=== PATIENT | female | born 2000 | race Caucasian/White ===

== ENCOUNTER → 2023-04-19 | Outpatient (CLI) | payer OTHER, SELFPAY ==
[2023-05-01 20:36] LABS: HPV Reflexed? NOT INDICATED
== END | disposition home or self-care (01) ==
LOC: LABSPEC 09:50
PROVIDERS: Visit Provider Nurse Practitioner Women's Health
DX: Z12.4 Encounter for screening for malignant neoplasm of cervix (principal)
CPT/HCPCS: 88175; G0145

== ENCOUNTER 2024-01-18 20:48 | Inpatient (IN) | payer MEDICAID, SELFPAY ==
[2024-01-18] VITALS (10 sets, daily range): BP systolic 92–124; BP diastolic 52–78; PULSE 118–148; RESP 20–32; TEMP 36.1–38; O2SAT 88–96; BMI 37.3
--- NOTE | 2024-01-18 21:00 | ED.VIS.DYS ---
HPI <Dr. Eitan Dimas MD - Last Filed: 01/20/24 21:52> History of Present Illness Chief Complaint: Shortness of Breath Detail of Chief Complaint: Shortness of breath with productive cough and wheezing Informant: patient and spouse/S.O. Onset/Context/Timing Onset: Days Context: gradual Timing: Continuous and Waxes and wanes Quality: Positive for Dyspnea on exertion and Wheezing; Negative for Orthopnea or PND Current Severity: Moderate Maximum Severity: Severe Worsened by: Exertion and Coughing Relieved by: Nothing Associated Symptoms cough, rhinorrhea, fever, sore throat, sweats and white sputum; Negative for post nasal drip, ear pain or chills Chest Pain: Positive for None Narrative Narrative: Patient is a 23-year-old female who presents because of shortness of breath that started several days ago and has gotten worse. She does report wheezing. She does report upper respiratory tract infectious symptoms. Significant other is ill. No known exposure to COVID, RSV or influenza. She has never had pneumonia. She denies history of VTE and has no risk factors other than hormonal therapy for control. She denies leg pain, swelling discoloration. PE Risk Factors: Negative for Cancer, OCP + Smoking + > 35, Prior DVT or PE, Recent immobilization, Recent surgery or Recent travel Prior similar symptoms: No Recent Illness/Hospitalization: No PFSH <Dr. Eitan Dimas MD - Last Filed: 01/20/24 21:52> PFSH Medical History no medical history no medical history Home Medications norgestimate 0.25 mg-ethinyl estradiol 35 mcg tablet (Sprintec (28)) 1 tab PO DAILY CONTROL 01/19/24 [History Last Taken 01/16/24] Allergy/AdvReac Type Severity Reaction Status Date / Time No Known Allergies Allergy Verified 01/18/24 20:53 Surgical History no surgical history no surgical history Social History (Updated 01/18/24 @ 21:[address] Eitan Dimas MD) household members: significant other Smoking Status: Heavy Smoker (>10/day) substance use type: does not use ROS <Dr. Eitan Dimas MD - Last Filed: 01/20/24 21:52> ROS ED Constitutional Constitutional ED: Reports chills, fever(s) and sweats; Denies weight loss Eyes Eyes: Denies blurry vision, change in vision or diplopia ENT ENT ED: Reports rhinorrhea and sore throat; Denies ear pain Cardiovascular Cardiovascular: Reports racing heartbeat; Denies chest pain, orthopnea, palpitations or paroxysmal nocturnal dyspnea Respiratory/Chest Respiratory/Chest: Reports cough, dyspnea, dyspnea on exertion, sputum and other Details: Also reports wheezing. ; Denies orthopnea or paroxysmal nocturnal dyspnea Gastrointestinal Gastrointestinal: Reports nausea and vomiting; Denies abdominal pain or diarrhea Genitourinary Genitourinary ED: Reports other Details: Decreased urine output ; Denies dysuria, hematuria or urinary frequency Musculoskeletal Musculoskeletal: Reports arthralgias and myalgias; Denies back pain Integumentary Denies rash Neurologic Neurologic: Reports headache(s) and weakness; Denies paresthesias Hematologic/Lymphatic Hematologic/Lymphatic: Denies easy bleeding or easy bruising EXAM <Dr. Eitan Dimas MD - Last Filed: 01/20/24 21:52> Physical Exam Const Vital Signs: 01/18/24 20:50 01/18/24 21:17 01/18/24 21:19 Temperature 98 F 96.9 F L Temperature Source Temporal Temporal Pulse Rate 129 H 118 H Respiratory Rate 32 H 24 H Respiratory Effort Short of Breath Labored Accessory Muscle Use Pursed Lip Respiratory Depth Shallow Respiratory Pattern Tachypnea Blood Pressure 92/74 110/57 L Blood Pressure Mean 80 74 Pulse Ox 94 93 Oxygen Delivery Method Room Air Room Air Room Air Oxygen Flow Rate (L/min) 01/18/24 21:15 01/18/24 21:40 01/18/24 21:40 Temperature Temperature Source Pulse Rate 134 H 148 H 139 H Respiratory Rate 24 H 22 H 22 H Respiratory Effort Respiratory Depth Respiratory Pattern Normal Tachypnea Blood Pressure 124/78 H Blood Pressure Mean 93 Pulse Ox 95 Oxygen Delivery Method Room Air Oxygen Flow Rate (L/min) 01/18/24 22:15 01/18/24 22:20 01/18/24 22:34 Temperature 98 F Temperature Source Temporal Pulse Rate 137 H Respiratory Rate 26 H Respiratory Effort Respiratory Depth Respiratory Pattern Blood Pressure 96/52 L Blood Pressure Mean 66 Pulse Ox 88 92 95 Oxygen Delivery Method Room Air Nasal Cannula Nasal Cannula Oxygen Flow Rate (L/min) 2 2 01/18/24 23:18 01/18/24 23:55 01/19/24 00:12 Temperature 100.4 F H 100.4 F H Temperature Source Oral Oral Pulse Rate 120 H 118 H Respiratory Rate 22 H 20 H Respiratory Effort Respiratory Depth Respiratory Pattern Blood Pressure 108/53 L 122/61 H Blood Pressure Mean 71 81 Pulse Ox 94 96 96 Oxygen Delivery Method Nasal Cannula Nasal Cannula Room Air Oxygen Flow Rate (L/min) 2 2 01/19/24 00:13 01/19/24 03:09 01/19/24 03:10 Temperature 99.2 F H 98.4 F 98.4 F Temperature Source Oral Oral Oral Pulse Rate 119 H 100 100 Respiratory Rate 20 H 20 H 20 H Respiratory Effort Respiratory Depth Respiratory Pattern Blood Pressure 131/64 H 107/59 L 107/59 L Blood Pressure Mean 86 75 75 Pulse Ox 95 94 94 Oxygen Delivery Method Room Air Nasal Cannula Nasal Cannula Oxygen Flow Rate (L/min) 2 2 01/19/24 04:00 01/19/24 05:00 01/19/24 05:00 Temperature 98.2 F 98 F Temperature Source Oral Temporal Pulse Rate 88 106 H Respiratory Rate 16 18 Respiratory Effort Respiratory Depth Respiratory Pattern Blood Pressure 114/54 L 127/85 H 127/85 H Blood Pressure Mean 74 99 99 Pulse Ox 98 99 Oxygen Delivery Method Oxygen Flow Rate (L/min) 01/19/24 06:00 01/19/24 07:11 Temperature 98.5 F Temperature Source Oral Pulse Rate 97 104 H Respiratory Rate 16 24 H Respiratory Effort Respiratory Depth Respiratory Pattern Tachypnea Blood Pressure 118/75 Blood Pressure Mean 89 Pulse Ox 90 Oxygen Delivery Method Nasal Cannula Oxygen Flow Rate (L/min) 3 Positive well nourished, well developed and obese Constitutional Narrative: Patient appears pale. She is tachypneic with use of accessory muscles. She talks in 1-3 word sentences. General Appearance ED: well developed and pallor; Negative for NAD Nutritional Appearance: obese HEENT Reports dry mucous membranes HEENT Narrative: Head is atraumatic no cephalic. Ears normal. Nares patent with discharge. Posterior pharynx without erythema or exudate. Mouth ED: Yes dry mucous membranes Mouth: dry mucous membranes Eyes PERRL and EOMs intact bilaterally General Eye ED: Negative for pale conjunctiva or scleral icterus Neck no lymphadenopathy, supple, no meningeal signs and no JVD Neck Narrative: Trachea is midline. There is no inspiratory or Tory wheezing. Resp No normal respiratory effort and No clear to auscultation bilaterally Resp Narrative: There is decreased air movement bilaterally. Breath sounds are symmetric. Auscultation: wheezes expiratory wheezes and throughout Cardio regular rhythm, S1 normal heart sound, S2 normal heart sound and no murmurs Rate: tachycardic GI non-tender, non-distended and no masses Auscultation: normoactive bowel sounds Palpation: soft Back/Spine no CVA tenderness Extremity normal to inspection Extremity Narrative: There is no clubbing or acrocyanosis. General Extremety ED: Negative for edema or tenderness General Extremity: Negative for edema Neuro oriented x3, CN's II-XII intact bilaterally and no sensory deficits noted Aurora Coma Scale: document GCS findings Spontaneous Obeys Commands Oriented 15 Sensorium / Orientation: alert Psych mental status grossly normal Skin no wounds and No skin turgor normal General Skin Exam: pallor; Negative for jaundice Lesions: no lesions Rashes: no rashes <Dr. Irwin Ramsey, DO - Last Filed: 01/19/24 08:34> Physical Exam Const Vital Signs: 01/18/24 20:50 01/18/24 21:17 01/18/24 21:19 Temperature 98 F 96.9 F L Temperature Source Temporal Temporal Pulse Rate 129 H 118 H Respiratory Rate 32 H 24 H Respiratory Effort Short of Breath Labored Accessory Muscle Use Pursed Lip Respiratory Depth Shallow Respiratory Pattern Tachypnea Blood Pressure 92/74 110/57 L Blood Pressure Mean 80 74 Pulse Ox 94 93 Oxygen Delivery Method Room Air Room Air Room Air Oxygen Flow Rate (L/min) 01/18/24 21:15 01/18/24 21:40 01/18/24 21:40 Temperature Temperature Source Pulse Rate 134 H 148 H 139 H Respiratory Rate 24 H 22 H 22 H Respiratory Effort Respiratory Depth Respiratory Pattern Normal Tachypnea Blood Pressure 124/78 H Blood Pressure Mean 93 Pulse Ox 95 Oxygen Delivery Method Room Air Oxygen Flow Rate (L/min) 01/18/24 22:15 01/18/24 22:20 01/18/24 22:34 Temperature 98 F Temperature Source Temporal Pulse Rate 137 H Respiratory Rate 26 H Respiratory Effort Respiratory Depth Respiratory Pattern Blood Pressure 96/52 L Blood Pressure Mean 66 Pulse Ox 88 92 95 Oxygen Delivery Method Room Air Nasal Cannula Nasal Cannula Oxygen Flow Rate (L/min) 2 2 01/18/24 23:18 01/18/24 23:55 01/19/24 00:12 Temperature 100.4 F H 100.4 F H Temperature Source Oral Oral Pulse Rate 120 H 118 H Respiratory Rate 22 H 20 H Respiratory Effort Respiratory Depth Respiratory Pattern Blood Pressure 108/53 L 122/61 H Blood Pressure Mean 71 81 Pulse Ox 94 96 96 Oxygen Delivery Method Nasal Cannula Nasal Cannula Room Air Oxygen Flow Rate (L/min) 2 2 01/19/24 00:13 01/19/24 03:09 01/19/24 03:10 Temperature 99.2 F H 98.4 F 98.4 F Temperature Source Oral Oral Oral Pulse Rate 119 H 100 100 Respiratory Rate 20 H 20 H 20 H Respiratory Effort Respiratory Depth Respiratory Pattern Blood Pressure 131/64 H 107/59 L 107/59 L Blood Pressure Mean 86 75 75 Pulse Ox 95 94 94 Oxygen Delivery Method Room Air Nasal Cannula Nasal Cannula Oxygen Flow Rate (L/min) 2 2 01/19/24 04:00 01/19/24 05:00 01/19/24 05:00 Temperature 98.2 F 98 F Temperature Source Oral Temporal Pulse Rate 88 106 H Respiratory Rate 16 18 Respiratory Effort Respiratory Depth Respiratory Pattern Blood Pressure 114/54 L 127/85 H 127/85 H Blood Pressure Mean 74 99 99 Pulse Ox 98 99 Oxygen Delivery Method Oxygen Flow Rate (L/min) 01/19/24 06:00 01/19/24 07:11 Temperature 98.5 F Temperature Source Oral Pulse Rate 97 104 H Respiratory Rate 16 24 H Respiratory Effort Respiratory Depth Respiratory Pattern Tachypnea Blood Pressure 118/75 Blood Pressure Mean 89 Pulse Ox 90 Oxygen Delivery Method Nasal Cannula Oxygen Flow Rate (L/min) 3 Neuro Anton Coma Scale: document GCS findings 15 MDM <Dr. Eitan Dimas MD - Last Filed: 01/20/24 21:52> [facility] Narrative Medical decision making narrative: Patient is tachycardic tachypneic in obvious respiratory distress with wheezing. Will treat with Atrovent and albuterol nebulized treatment. She will receive 125 mg of Solu-Medrol. She does not have history of asthma. This may be an upper respiratory infection with bronchospasm versus pneumonia. She is not PERC negative. History is not consistent with PE, however. She has no symptoms of orthopnea or PND to suggest heart failure and possible myocarditis. Appropriate blood work was obtained to assess for endorgan dysfunction in the event that she has pneumonia and evaluate for sepsis. History & Record Review Additional record(s) reviewed:: No prior records Lab Data Attestation: I reviewed the patient's lab results. Lab results narrative: CBC is unremarkable. Comprehensive metabolic panel is remarkable for elevated AST and ALT as well as alkaline phosphatase. This may represent atypical organisms specifically chlamydia pneumonia. Lactate is 2. This is not elevated. There is no evidence of endorgan dysfunction. Labs: Laboratory Results - last 24 hr 01/18/24 01/19/24 21:09 01:29 WBC 8.1 RBC 4.69 Hgb 14.9 Hct 44.6 MCV 95.1 MCH 31.8 MCHC 33.4 RDW Std Deviation 40.4 RDW Coeff of Surendra 11.7 Plt Count 295 MPV 10.2 Immature Gran % (Auto) 0.200 Neut % (Auto) 78.7 H Lymph % (Auto) 11.5 L Sampson % (Auto) 9.2 Eos % (Auto) 0.2 Baso % (Auto) 0.2 Absolute Neuts (auto) 6.4 Absolute Lymphs (auto) 0.93 Nucleated RBC % 0 Sodium 136 Potassium 3.8 Chloride 106 Carbon Dioxide 23.0 Anion Gap 7 BUN 5 L Creatinine 0.95 Estim Creat Clear Calc 126.15 Est GFR (MDRD) Af Amer 93 Est GFR (MDRD) Non-Af 76 BUN/Creatinine Ratio 5.3 L Glucose 108 H Lactic Acid 2.0 4.5 H* Calcium 9.0 Total Bilirubin 0.40 AST 53 H ALT 63 H Alkaline Phosphatase 126 H Total Protein 7.8 Albumin 3.6 Globulin 4.2 Albumin/Globulin Ratio 0.9 Radiography Chest X-Ray - ED: 2 View, Read by ED Physician (Was independent reviewed interpreted by me at 2140.), Normal, Heart, Lungs, Mediastinum, Bony Structures and No Acute Disease Diagnostic Testing: Clinical Impression(s) from Imaging Studies Chest X-Ray 01/18/24 21:30 IMPRESSION: Normal x-ray examination of the chest. Electronically Signed: Keaton Carranza MD at 21:43 EST , Chest CTA 01/18/24 22:42 IMPRESSION: 1. Negative CTA chest examination, without a demonstrated pulmonary embolism or arterial dissection. 2. Pneumomediastinum extending from the level the paris and extending superiorly into the base of the neck worrisome for tracheal or esophageal injury/perforation. Clinical correlation is recommended. N.B. : The above Results were Read Back by Keaton Carranza MD to Irwin Ramsey DO, and understanding confirmed on 01/18/2024 23:46:52 (ET). Electronically Signed: Keaton Carranza MD at 23:50 EST , ADDENDUM: 01/18/24 2357 IMPRESSION: 1. Negative CTA chest examination, without a demonstrated pulmonary embolism or arterial dissection. 2. Pneumomediastinum extending from the level the paris and extending superiorly into the base of the neck worrisome for tracheal or esophageal injury/perforation. Clinical correlation is recommended. N.B. : The above Results were Read Back by Keaton Carranza MD to Irwin Ramsey DO, and understanding confirmed on 01/18/2024 23:46:52 (ET). Electronically Signed: Keaton Carranza MD at 23:50 EST , Rhythm Strip Rhythm Strip: Sinus Tach Rate: 130 Ectopy: None Treatment and Re-Evaluation :: Patient was reassessed. Heart rate is 1 42-1 50. She is breathing 25-30 times a minute. She has significant wheezing heard throughout in spite of 2 aerosol treatments and Solu-Medrol. Her rapid antigen for COVID influenza and RSV is pending. She is receiving aerosol treatment 3 and 4 <Dr. Irwin Rasmey, - Last Filed: 01/19/24 08:34> [facility] Lab Data Labs: Laboratory Results - last 24 hr 01/18/24 01/19/24 21:09 01:29 WBC 8.1 RBC 4.69 Hgb 14.9 Hct 44.6 MCV 95.1 MCH 31.8 MCHC 33.4 RDW Std Deviation 40.4 RDW Coeff of Surendra 11.7 Plt Count 295 MPV 10.2 Immature Gran % (Auto) 0.200 Neut % (Auto) 78.7 H Lymph % (Auto) 11.5 L Sampson % (Auto) 9.2 Eos % (Auto) 0.2 Baso % (Auto) 0.2 Absolute Neuts (auto) 6.4 Absolute Lymphs (auto) 0.93 Nucleated RBC % 0 Sodium 136 Potassium 3.8 Chloride 106 Carbon Dioxide 23.0 Anion Gap 7 BUN 5 L Creatinine 0.95 Estim Creat Clear Calc 126.15 Est GFR (MDRD) Af Amer 93 Est GFR (MDRD) Non-Af 76 BUN/Creatinine Ratio 5.3 L Glucose 108 H Lactic Acid 2.0 4.5 H* Calcium 9.0 Total Bilirubin 0.40 AST 53 H ALT 63 H Alkaline Phosphatase 126 H Total Protein 7.8 Albumin 3.6 Globulin 4.2 Albumin/Globulin Ratio 0.9 Radiography Diagnostic Testing: Clinical Impression(s) from Imaging Studies Chest X-Ray 01/18/24 21:30 IMPRESSION: Normal x-ray examination of the chest. Electronically Signed: Keaton Carranza MD at 21:43 EST Reading Location ID and State: [id number] / [employer] , Service support , Chest CTA 01/18/24 22:42 IMPRESSION: 1. Negative CTA chest examination, without a demonstrated pulmonary embolism or arterial dissection. 2. Pneumomediastinum extending from the level the paris and extending superiorly into the base of the neck worrisome for tracheal or esophageal injury/perforation. Clinical correlation is recommended. N.B. : The above Results were Read Back by Keaton Carranza MD to Irwin Ramsey DO, and understanding confirmed on 01/18/2024 23:46:52 (ET). Electronically Signed: Keaton Carranza MD at 23:50 EST Reading Location ID and State: [id number] / [employer] , Service support , ADDENDUM: 01/18/24 2357 IMPRESSION: 1. Negative CTA chest examination, without a demonstrated pulmonary embolism or arterial dissection. 2. Pneumomediastinum extending from the level the paris and extending superiorly into the base of the neck worrisome for tracheal or esophageal injury/perforation. Clinical correlation is recommended. N.B. : The above Results were Read Back by Keaton Carranza MD to Irwin Ramsey DO, and understanding confirmed on 01/18/2024 23:46:52 (ET). Electronically Signed: Keaton Carranza MD at 23:50 EST , Treatment and Re-Evaluation :: Patient was reassessed. Heart rate is 1 42-1 50. She is breathing 25-30 times a minute. She has significant wheezing heard throughout in spite of 2 aerosol treatments and Solu-Medrol. Her rapid antigen for COVID influenza and RSV is pending. She is receiving aerosol treatment 3 and 4 Care of the patient was turned over to md. COVID-19 PCR was reviewed and was negative. Influenza PCR was reviewed and was positive for influenza A and negative for influenza B. RSV PCR was reviewed and was negative. Patient oxygen saturation dropped into the upper 80s. Patient was started on oxygen by nasal cannula. Because of the hypoxia, persistent tachycardia and tachypnea, CTA of the chest was obtained to assess for pulmonary embolism. CTA of the chest was obtained. There is no evidence of pulmonary embolism. There is pneumomediastinum starting at the level of the paris and extending superiorly into the neck. This was interpreted by the radiologist and was also independently reviewed by myself. Patient was started on Zosyn. Patient was advised of her findings. Patient was advised of the need for transfer to higher level of care. Patient requested a nearby facility. [facility] and [facility] were not accepting any patients. [facility] [place] and [facility] cannot care for the patient. Case was discussed with [facility]. Case was discussed with Dr. Gomez, thoracic surgeon. He stated that the patient does not require emergency surgery and recommended admitting to medical service. Case was discussed with Dr. Velazco, hospitalist. He accepted the patient to be transferred there. Patient will be transferred to [facility] when a bed becomes available. Patient understands and is agreeable with the plan. All questions were answered. Case was discussed with the hospitalist here after 6 hours pending transfer to [facility]. He recommended contacting [facility] for possible transfer. [facility] was contacted. They are unable to accept the patient. Case was discussed with hospitalist at [facility]. He does not feel the patient needs to be transferred at this time since the patient's vital signs are improving. Case was discussed with the hospitalist again. He will admit the patient pending transfer to [facility]. Case was also discussed with Dr. aNqvi. She recommended keeping the patient n.p.o. Patient understood and was agreeable with the plan. All questions were answered <Dr. Irwin Ramsey, DO - Last Filed: 01/19/24 08:34> Critical Care Time Critical Care Time: Yes Critical care time (excluding procedures): 30-74 minutes (42), Including time spent:, Discussing w/Patient &/or Family/Citizen Participation Specialist, Discussing w/Consultants, Arranging Admission or Transfer and Performing Direct Patient Care at Bedside Discharge Plan Dx/Rx/DC Orders Clinical Impression: Pneumomediastinum, Acute upper respiratory infection, Sinus tachycardia, Acute bronchospasm, Influenza A Disposition Disposition: [facility] Discharge Date/Time: 01/19/24 09:12
[2024-01-18] MEDS: MethylPREDNISolone 125 MG/2 ML Vial IV (21:13)
[2024-01-18] MEDS: Ipratropium/Albuterol Sulfate 3 ML AMPUL.NEB INHALATION (21:15)
[2024-01-18] MEDS: Albuterol 2.5 MG/3 ML VIAL.NEB. INHALATION ×3 (21:15→21:40)
[2024-01-18 21:19] LABS: Absolute Lymphocyte Count 0.93 X10^3/uL (0.83-4.51); Absolute Neutrophil Count 6.4 X10^3/uL (2.0-7.7); Basophil# 0.02 X10^3/uL; Basophil% 0.2 % (0-1); Eosinophil# 0.02 X10^3/uL; Eosinophils% 0.2 % (0-5); Hematocrit 44.6 % (37-47); Hemoglobin 14.9 g/dL (12.0-15.0); Lymphocyte # 0.93 X10^3/ul (0.83-4.51); Lymphocyte % 11.5 % (19-41); Mean Corp Hgb Conc 33.4 g/dL (32-36); Mean Corpuscular Hgb 31.8 pg (27.0-32.0); Mean Corpuscular Volume 95.1 fL (81-99); Mean Platelet Vol. 10.2 fl (6.2-12.0); Monocyte# 0.74 X10^3/uL; Monocyte% 9.2 % (0-10); NRBC Flagged by Analyzer 0 % (0-5); Neutrophil # 6.35 X10^3/uL (2.7-7.7); Neutrophil % 78.7 % (47-70); Platelet Count 295 K/mm3 (150-450); RBC Distribution Width CV 11.7 % (11.6-14.6); RBC Distribution Width SD 40.4 fl (35.1-43.9); Red Blood Count 4.69 M/mm3 (4.2-5.4); White Blood Count 8.1 K/mm3 (4.4-11.0)
--- NOTE | 2024-01-18 21:30 | RAD_ITS ---
STUDY: X-RAY CHEST REASON FOR EXAM: Female, 23 years old. Cough, wheezing and respiratory distress TECHNIQUE: PA and lateral views of the chest. COMPARISON: None. FINDINGS: The lungs are clear and expanded. There is no demonstrated pleural abnormality. Normal size heart. Normal mediastinum and david. Normal visualized pulmonary arteries. Normal visualized aortic arch and descending thoracic aorta. Normal visualized thoracic spine. Normal visualized ribs, clavicles, and shoulders. There is no demonstrated abnormality of the visualized soft tissue structures of the upper abdomen. RAD/Chest PA and Lateral IMPRESSION: Normal x-ray examination of the chest. Electronically Signed: Keaton Carranza MD at 21:43 EST ,
[2024-01-18 21:40] LABS: ALB/GLOB Ratio 0.9 RATIO (0.9-2.4); AST(SGOT) 53 U/L (15-37); Alanine Aminotransfer ALT/SGPT 63 U/L (13-56); Albumin, Serum 3.6 g/dL (3.2-5.0); Alkaline Phosphatase 126 U/L (45-117); Anion Gap 7 (5-15); BUN 5 mg/dL (7-18); BUN/Creat Ratio 5.3 RATIO (10-20); Chloride 106 mmol/L (98-107); Creatinine, Serum 0.95 mg/dL (0.55-1.02); EST Glomerular Filtration Rate 76 mL/min (>60); Est Glom Filt Rate - Afr Amer 93 mL/min (>60); Estimated Creatinine Clearance 126.15 ml/min; Globulin 4.2 g/dL (2.2-4.2); Glucose 108 mg/dL (74-106); Potassium 3.8 mmol/L (3.5-5.1); Protein, Total 7.8 g/dL (6.4-8.2); Sodium Level 136 mmol/L (136-145)
--- OUTSIDE RECORDS SUMMARY | 2024-01-18 21:48 | XMS RPT_ITS | CCD ---
Author Name Unknown Address [address] [place] [address] Organization [facility] Care Team Providers Care Certified Art Therapist Name Role Phone PROVIDER, UNKNOWN Unavailable Unavailable MARIYA JUSTICE Unavailable Unavailable PROVIDER, UNKNOWN Unavailable Unavailable PROVIDER, UNKNOWN Unavailable Unavailable PROVIDER, UNKNOWN Unavailable Unavailable PROVIDER, UNKNOWN Unavailable Unavailable RUDDY, ISIDORO Unavailable Unavailable PROVIDER, UNKNOWN Unavailable Unavailable PROVIDER, UNKNOWN Unavailable Unavailable RUDDY, ISIDORO Unavailable Unavailable RUDDY, ISIDORO Unavailable Unavailable PROVIDER, UNKNOWN Unavailable Unavailable RUDDY, ISIDORO Unavailable Unavailable RATAUL, MADIE Unavailable Unavailable PROVIDER, UNKNOWN Unavailable Unavailable PROVIDER, UNKNOWN Unavailable Unavailable RUDDY, ISIDORO Unavailable Unavailable PROVIDER, UNKNOWN Unavailable Unavailable Ko Ortega Unavailable Unavailable Juanita Baez Attending Unavailable REFERRED, SELF Referring Unavailable Irwin Wilkerson Primary Care Unavailable Juanita Baez Attending Unavailable Irwin Wilkerson Referring Unavailable Irwin Wilkerson Primary Care Unavailable Jimmy REARDON, Lauryn Perales Primary Care Provider [phone] Medications Current Medications Medication Drug Class(es) Dates Sig (Normalized) Sig (Original) Ethinyl Estradiol / norgestimate (2 sources) Progestin, Estrogen Start: 10-24-2022 End: 11-21-2022 take 1 tablet by mouth once daily norgestimate 0.25 mg-ethinyl estradiol 35 mcg (ESTARYLLA) 0.25-35 mg-mcg per tablet Take 1 tablet by mouth once daily for 28 days. 28 tablet 3 10/24/2022 11/21/2022 Active Completed/Discontinued Medications Medication Drug Class(es) Dates Sig (Normalized) Sig (Original) [id number] 200 actuat albuterol 0.09 mg/actuat metered dose inhaler (1 source) beta2-Adrenergic Agonist Start: 04-21-2021 take 2 puff(s) by inhalation every four hours as needed for wheezing albuterol HFA (VENTOLIN HFA) 90 mcg/actuation inhaler Inhale 2 Puffs as instructed every 4 hours as needed for Wheezing/Shortnes s of Breath. 1 Each 1 04/21/2021 Active Problems Problem Classification Problem Date Documented Date Episodic/Chronic Asthma (2 sources) Mild intermittent asthma with (acute) exacerbation; Translations: [Asthma] Onset: 12-29-2009 12-29-2009 Chronic Developmental disorders (1 source) Developmental academic disorder; Translations: [Developmental disorder of scholastic skills, unspecified] Onset: 01-04-2015 01-04-2015 Chronic Esophageal disorders (1 source) Gastroesophageal reflux disease; Translations: [Gastro-esophageal reflux disease without esophagitis] Onset: 03-24-2012 03-24-2012 Chronic Results Test Name Value Interpretation Reference Range Facil ity Encounters Encounter Date Encounter Type Care Provider Facility Start: 10-24-2022 Refshane estrada MD Work Phone: [facility] Procedures Date Procedure Procedure Detail Performing Clinician Start: 04-13-2018 Basic metabolic pane l calcium total UNKNOWN PROVIDER Start: 04-13-2018 Blood count complete auto&auto difrntl wbc UNKNOWN PROVIDER Start: 04-13-2018 Hepatic function panel UNKNOWN PROVIDER Start: 04-13-2018 URINALYSIS - MICRO (SATELLITE) UNKNOWN PROVIDER Start: 04-13-2018 URINALYSIS W/REFLEX CULT - CHEMISTRY (SAT) UNKNOWN PROVIDER Start: 04-13-2018 URINE CULTURE UNKNOWN P ROVIDER Start: 04-13-2018 Urine test visual color cmprsn meths UNKNOWN PROVIDER Start: 04-13-2018 Urnls dip stick/tabl et rgnt auto w/o microscopy UNKNOWN PROVIDER Start: 04-13-2018 Us abdominal real ti me w/image limited UNKNOWN PROVIDER Start: 07-26-2017 Demo&/eval of pt uti marcelo aersl gen/neb/inhlr/ip UNKNOWN PROVIDER Start: 07-26-2017 Pulmonary stress test/simple UNKNOWN PROVIDER Start: 07-26-2017 PFT PER PROTOCOL SER VICE REQUEST UNKNOWN PROVIDER Start: 07-20-2017 ADMIT TO CDU UNKNOWN PA OVIDER Start: 07-20-2017 Assay of magnesium UNKN OWN PROVIDER Start: 07-20-2017 Basic metabolic pane l calcium total UNKNOWN PROVIDER Start: 07-20-2017 Blood count complete automated UNKNOWN PROVIDER Start: 07-20-2017 Chest x-ray UNKNOWN PA OVIDER Start: 07-20-2017 Introduction needle/intracatheter vein UNKNOWN PROVIDER Start: 07-20-2017 MEASURE WEIGHT UNKNOWN PROVIDER Start: 07-20-2017 RECORD HEIGHT UNKNOWN P MICKIEVIDER Start: 07-20-2017 SEND TO CDU UNKNOWN PA OVIDER Start: 07-20-2017 Urine test visual color cmprsn meths UNKNOWN PROVIDER Plan of Treatment Date Care Activity Detail Author Start: 04-21-2031 Urine microalbumin profile DTA P,TDAP,TD (8 - Td or Tdap) [facility] Start: 08-02-2022 Influenza vaccination INFLUENZA (#1) [facility] Start: 12-02-2021 DEPRESSION ASSESSMENT DEPRESSION ASS ESSMENT [facility] Start: 2019 PAP TESTING PAP TESTING [facility] Start: 04-10-2018 CHLAMYDIA SCREENING (18-24) CHLAMYDIA SCREENING (18-24) [facility] Start: 04-10-2018 GC (GONORRHEA) SCREE TIEN (18-24) GC (GONORRHEA) SCREENING (18-24) [facility] Start: 2016 ANNUAL PCP TEAM BAKERY DELIVERER LOU DISEASE VISIT ANNUAL PCP TEAM CHRONIC DISEASE VISIT [facility] Start: 2016 HEPATITIS C SCREENING HEPATITIS C SC JAMESNING [facility] Start: 2016 HIV SCREENING HIV SCREENING [facility] Start: 2016 SPIROMETRY SPIROMETRY [facility] Start: 2012 PEDS TO ADULT TRANSI TION ANNUAL ASSESSMENT PEDS TO ADULT TRANSITION ANNUAL ASSESSMENT [facility] Start: 2010 PEDS TO ADULT TRANSI TION INITIAL DISCUSSION PEDS TO ADULT TRANSITION INITIAL DISCUSSION [facility] Start: 2008 MENINGOCOCCAL B: Con central supply assistant based on risk (1 of 2 - Risk Bexsero 2-dose series) MENINGOCOCCAL B: Consider based on risk (1 of 2 - Risk Bexsero 2-dose series) [facility] Start: 2004 PNEUMOCOCCAL (1 - PCV) PNEUMOCOCCAL (1 - PCV) [facility] Start: 06-16-1999 COVID-19 VACCINE (#1) COVID-19 VACCI NE (#1) [facility] Immunizations Immunization Date Immunization Notes Care Provider Fa cility 04-21-2021 tetanus toxoid, redu yana diphtheria toxoid, and acellular pertussis vaccine, adsorbed Lauryn Marquez MD Work Phone: [facility] 09-27-2016 influenza, injectabl e, quadrivalent, preservative free Lauryn Marquez MD Work Phone: [facility] 01-04-2015 meningococcal polysaccharide (groups A, C, Y and W-135) diphtheria toxoid conjugate vaccine (MCV4P) Lauryn Marquez MD Work Phone: [facility] 09-14-2014 influenza, seasonal, injectable Lauryn Marquez MD Work Phone: [facility] 10-13-2013 influenza virus vacc ine, whole virus Lauryn Marquez MD Work Phone: [facility] 10-08-2012 influenza virus vacc ine, whole virus Lauryn Marquez MD Work Phone: [facility] 10-19-2011 influenza virus vacc ine, whole virus Lauryn Marquez MD Work Phone: [facility] 07-17-2011 human papilloma viru s vaccine, quadrivalent Lauryn Marquez MD Work Phone: [facility] 03-20-2011 human papilloma viru s vaccine, quadrivalent Lauryn Marquez MD Work Phone: [facility] 01-17-2011 human papilloma viru s vaccine, quadrivalent Lauryn Marquez MD Work Phone: [facility] 09-27-2010 influenza virus vacc ine, whole virus Lauryn Marquez MD Work Phone: [facility] 12-29-2009 Meningococcal, MCV4, unspecified conjugate formulation(groups A, C, Y and W-135) Lauryn Marquez MD Work Phone: [facility] 12-29-2009 tetanus toxoid, redu yana diphtheria toxoid, and acellular pertussis vaccine, adsorbed Lauryn Marquez MD Work Phone: [facility] 02-12-2008 varicella virus vaccine Omar husam Marquez MD Work Phone: [facility] 03-03-2003 diphtheria, tetanus toxoids and acellular pertussis vaccine Lauryn Marquez MD Work Phone: [facility] Work Phone: 03-03-2003 measles, mumps and rubella virus vaccine Laurny Marquez MD Work Phone: [facility] Work Phone: 03-03-2003 poliovirus vaccine, inactivated Lauryn Marquez MD Work Phone: [facility] Work Phone: 08-13-2001 pneumococcal conjuga te vaccine, 7 valent Lauryn Marquez MD Work Phone: [facility] Work Phone: 03-13-2001 measles, mumps and rubella virus vaccine Lauryn Marquez MD Work Phone: [facility] Work Phone: 08-28-2000 diphtheria, tetanus toxoids and acellular pertussis vaccine Lauryn Marquez MD Work Phone: [facility] Work Phone: 08-28-2000 poliovirus vaccine, inactivated Lauryn Marquez MD Work Phone: [facility] Work Phone: 08-28-2000 varicella virus vaccine Omar Marquez MD Work Phone: [facility] Work Phone: 03-25-2000 haemophilus influenz ae type b vaccine, HbOC conjugate Lauryn Marquez MD Work Phone: [facility] Work Phone: 09-14-1999 diphtheria, tetanus toxoids and acellular pertussis vaccine Lauryn Marquez MD Work Phone: [facility] Work Phone: 09-14-1999 haemophilus influenz ae type b vaccine, HbOC conjugate Lauryn Marquez MD Work Phone: [facility] Work Phone: 09-14-1999 hepatitis B vaccine, pediatric or pediatric/adolescent dosage Lauryn Marquez MD Work Phone: [facility] Work Phone: 05-29-1999 diphtheria, tetanus toxoids and acellular pertussis vaccine Lauryn Marquez MD Work Phone: [facility] Work Phone: 05-29-1999 haemophilus influenz ae type b vaccine, HbOC conjugate Lauryn Marquez MD Work Phone: [facility] Work Phone: 05-29-1999 poliovirus vaccine, inactivated Lauryn Marquez MD Work Phone: [facility] Work Phone: 03-03-1999 diphtheria, tetanus toxoids and acellular pertussis vaccine Lauryn Marquez MD Work Phone: [facility] Work Phone: 03-03-1999 haemophilus influenz ae type b vaccine, HbOC conjugate Lauryn Marquez MD Work Phone: [facility] Work Phone: 03-03-1999 poliovirus vaccine, inactivated Lauryn Marquez MD Work Phone: [facility] Work Phone: 02-01-1999 hepatitis B vaccine, pediatric or pediatric/adolescent dosage Lauryn Marquez MD Work Phone: [facility] Work Phone: 1998 hepatitis B vaccine, pediatric or pediatric/adolescent dosage Lauryn Marquez MD Work Phone: [facility] Work Phone: Payers Date Payer Category Payer Unknown MMO MMO [employer] [id number] 2020-Present [phone] [address] [place] [address] PPO [id number] 2017 Medicaid 2014 Medicaid [id number] 1998 Unknown [id number] 1998 Unknown [id number] Self-pay [id number] Social History Date Type Detail Facility [facility] History of tobacco use Cigarette Smoker C [facility] Start: 12-25-2017 Cigarettes smoked cu rrent (pack per day) - Reported 0.3 [facility] Start: 12-25-2017 Tobacco use and exposure Smoke less tobacco non-user [facility] Start: 04-21-2021 Alcohol intake Not Asked [facility] Start: 1998 Sex Assigned At Not on file C [facility] Note 10-24-2022 Telephone Encounter - Delphine Campbell Ma - 10/24/2022 3:49 PM ESTTelephone Encounter - Joycelyn Amato Ma - 10/24/2022 2:45 PM ESTTelephone Encounter - Meaghan Salvador - 10/24/2022 10:03 AM EST Note Date & Type Note Facility 10-24-2022 Miscellaneous Notes Formattin g of this note might be different from the original. Next apt 01/30/22, pt can only do after 5:00 or Satur apt due to work scheduled Script pending please review/file Pt calling in asking for an update on her refill request. Please review. Thank you. Patient calls for refill(s) of the following medication(s): Requested Prescriptions Pending Prescriptions Disp Refills norgestimate 0.25 mg-ethinyl estradiol 35 mcg (ESTARYLLA) 0.25-35 mg-mcg per tablet Sig: Take 1 tablet by mouth once daily. Preferred Pharmacy: [facility] [address] [address] Pt Ph #: [phone] Next appt: Visit date not found Last appt: Visit date not found Last filled: Meaghan Salvador Pt has changed pharmacy, completely out of this medication. documented in this encounter [facility] Progress note 04-21-2021 Note Date & Type Note Facility 04-21-2021 Note HNO ID: [id number] Author: Lauryn Marquez MD Service: ? Author Type: Physician Type: Progress Notes Filed: 04/24/2021 9:53 AM Note Text: Well woman exam I reviewed her past medical, surgical, social, and family histories today and updated chart. Allergies, chronic medications, and supplements were also reviewed and her list is now up to date. Concern(s) today include: Pruritic rash on abd and legs when oil gets on her. FAMILY HISTORY Problem Relation Age of Onset - Diabetes Unknown dad's side - Cancer Paternal Grandfather ?primary but has mets - Asthma Mother AND dad Are her periods regular? yes Intermenstrual bleeding? no Any concerns about her periods? no Current method of control: OCP Concerned about STDs? no Problems with intercourse? No stable BF x 2 years Pap Hx: never had Diet: eating better Exercise: walking Lives with boyfriend Tobacco Use: yes cutting back Alcohol Use: no Her medications were reviewed today and her list is now up to date. REVIEW OF SYSTEMS: Problems with vision? No Problems with hearing? No Chest pains? Only with reflux Shortness of breath? Occ with chemicals at work Changes in bowel function? Occ GERD, chest pain after eating, sx never with exertion Changes in urination? No Changes in mood? No Any problems with sexual functioning? No Any skin changes? No Any fatigue?No PHYSICAL EXAMINATION: BP 128/64 Temp 36.8 ?C (98.3 ?F) (Temporal) Ht 174 cm (5' 8.5 ) Wt 101.2 kg (223 lb) LMP 04/14/2021 (Approximate) BMI 33.41 kg/m? General appearance: well appearing, alert, in no acute distress and well-hydrated, well nourished Skin: skin color, texture, turgor normal, no suspicious rashes or lesions Head: normal, negative findings: hair normal in quality, distribution, and texture Eyes: Anicteric sclera. Pupils are equally round and reactive to light. Extraocular movements are intact. Ears: external ears normal, canals clear, TM's normal Nose/Sinuses: negative Oropharynx: lips, mucosa, and tongue normal, teeth and gums normal, oropharynx normal Neck: Supple, no adenopathy; thyroid symmetric, normal size Lungs: lungs clear to auscultation, no wheezing or rhonchi Heart: RRR without murmur, gallop, or rubs. Extremities: Extremities normal. No deformities, edema, or skin discoloration. Good capillary refill ASSESSMENT/PLAN: 1. Routine physical examination - ICD9: V70.0, ICD10: Z00.00 (primary diagnosis) - Recommended regular aerobic exercise. - Follow up for annual exam in one year. - F/u pap, declines today - TDAP VACCINE AGE 7+ IM 2. MUNOZ (dyspnea on exertion) - ICD9: 786.09, ICD10: R06.00 - rec PFTs, pt declines but will trial prn albuterol 3. Contact dermatitis - rec better PPE, prn topical steroids 4. GERD - rec PPI x 12 weeks, avoid triggers Lauryn Marquez MD [facility] Summary Purpose Family History No Family History Records FoundNo Family History Records FoundNo Family History Records FoundNo Family History Records FoundNo Family History Records Found Advance Directives No Advanced Directives Records FoundNo Advanced Directives Records FoundNo Advanced Directives Records FoundNo Advanced Directives Records FoundNo Advanced Directives Records Found Additional Source Comments INFORMATION SOURCE (unrecogn ized section and content) DATE CREATED AUTHOR AUTHOR'S ORGANIZ ATION 05/22/2018 [facility] DATE CREATED AUTHOR AUTHOR'S ORGANIZ ATION 12/18/2018 [facility] DATE CREATED AUTHOR AUTHOR'S ORGANIZ ATION 01/20/2019 [facility] DATE CREATED AUTHOR AUTHOR'S ORGANIZ ATION 12/26/[address] [facility] Source Comments (unrecognize d section and content) In the event this informatio n is protected by the Federal Confidentiality of Alcohol and Drug Abuse Patient Records regulations: The Federal rules restrict any use of the information to criminally investigate or prosecute any alcohol or drug abuse patient.[facility] Reason for Visit (unrecogniz ed section and content) Care Teams (unrecognized sec tion and content) FOR RECORDS PERTAINING TO PATIENTS WHO ARE OR HAVE BEEN ENROLLED IN A CHEMICAL DEPENDENCY/SUBSTANCEABUSE PROGRAM, SOME INFORMATION MAY BE OMITTED. This clinical summary was aggregated from multiple sources. Caution should be exercised in using it in the provision of clinical care. This summary normalizes information from multiple sources, and as a consequence, information in this document may materially change the coding, format and clinical context of patient data. In addition, data may be omitted in some cases. CLINICAL DECISIONS SHOULD BE BASED ON THE PRIMARY CLINICAL RECORDS. [facility]. provides no warranty or guarantee of the accuracy or completeness of information in this document.
--- NOTE | 2024-01-18 22:42 | CT_ITS ---
STUDY: CTA CHEST REASON FOR EXAM: Female, 23 years old. Dyspnea RADIATION DOSAGE (If Supplied By Facility): CTDIvol = ( 14.97 ) mGy, DLP = ( 499.07 ) mGycm TECHNIQUE: The examination was performed with the intravenous administration of IV 100mL Isovue-370. Post-processing of the angiographic images was performed, with multiplanar reformation and 3D reconstruction. Individualized dose optimization techniques were used for this CT. COMPARISON: Chest x-ray earlier today FINDINGS: Normal enhancement of the main pulmonary artery and right and left pulmonary arteries. Normal enhancement of the bilateral peripheral pulmonary arteries. There is no demonstrated pulmonary embolism. Normal thoracic aorta and visualized great vessels. There is no demonstrated aortic dissection. Normal heart and pericardium. Small amount of pneumomediastinum extending from the level of the paris between the paris and the esophagus and extending superiorly in the right paratracheal space extending into the neck in the prevertebral space in the right carotid space. This may be from tracheal or esophageal injury. Normal hilar regions. Normal visualized trachea and bronchi. The lungs are well expanded. Normal pulmonary parenchyma. Normal pleura. Normal chest wall structures. Normal osseous structures. Normal visualized upper abdomen. CT/CTA Chest W/WO Contrast IMPRESSION: 1. Negative CTA chest examination, without a demonstrated pulmonary embolism or arterial dissection. 2. Pneumomediastinum extending from the level the paris and extending superiorly into the base of the neck worrisome for tracheal or esophageal injury/perforation. Clinical correlation is recommended. N.B. : The above Results were Read Back by Keaton Carranza MD to Irwin Ramsey DO, and understanding confirmed on 01/18/2024 23:46:52 (ET). Electronically Signed: Keaton Carranza MD at 23:50 EST ,
[2024-01-18] MEDS: 0.9% Normal Saline (1000mL) 1,000 ML 1000 ML IV (23:21)
[2024-01-19] VITALS (16 sets, daily range): BP systolic 105–132; BP diastolic 54–85; PULSE 86–119; RESP 16–24; TEMP 36.6–37.3; O2SAT 90–99; BMI 31.6
[2024-01-19] MEDS: Piperacil/Tazobactam 4.5 GM in 0.9% Normal Saline (100mL MB+) 100 ML IV (00:36)
[2024-01-19 01:16] LABS: Reflex Lactate? Y
[2024-01-19 02:18] LABS: Lactic Acid 4.5 mmol/L (0.4-1.9)
--- NOTE | 2024-01-19 07:00 | NURSING ---
CALLED [facility] TRANSFER LINE, TALKED TO MADDIE. NO BED THIS AM, MAYBE TONIGHT. MIGHT WANT TO ADMIT HER
[2024-01-19] MEDS: Albuterol 2.5 MG/3 ML VIAL.NEB. INHALATION ×3 (07:10→19:58)
[2024-01-19] MEDS: Benzonatate 100 MG Capsule 200 MG PO (07:18)
--- NOTE | 2024-01-19 07:23 | NURSING ---
DR MICHELLE CALLE
--- NOTE | 2024-01-19 07:41 | NURSING ---
FAXED FACESHEET HAD RAD AND CT SENT TO [facility]
--- NOTE | 2024-01-19 07:56 | NURSING ---
TALKED TO ESPINOZA AT [facility]. FAXED FACE SHEET
--- NOTE | 2024-01-19 08:34 | NURSING ---
PCU JOPPERI PNEUMOMEDIASTINUM, INFLUENZA A
--- OUTSIDE RECORDS SUMMARY | 2024-01-19 08:44 | XMS RPT_ITS | CCD ---
Author Name Unknown Address [address] [place] [address] Organization [facility] Care Team Providers Care Graphic Arts Technician Name Role Phone PROVIDER, UNKNOWN Unavailable Unavailable [...] Jimmy REARDON, Lauryn Perales Primary Care Provider [phone] Medications Current Medications Medication Drug Class(es) Dates [...] Drug Class(es) Dates Sig (Normalized) Sig (Original) [id number] 200 actuat albuterol 0.09 mg/actuat metered dose [...] Encounter Type Care Provider Facility Start: 10-24-2022 Jose Roberto estrada MD Work Phone: Family Medicine Procedures [...] PROVIDER Start: 07-20-2017 ADMIT TO CDU UNKNOWN CO [facility]ID[facility] Start: 07-20-2017 Assay of magnesium UNKN OWN PROVIDER Start: 07-20-2017 Basic metabolic pane l calcium total UNKNOWN PROVIDER Start: 07-20-2017 Blood count complete automated UNKNOWN PROVIDER Start: 07-20-2017 Chest x-ray UNKNOWN CO OVIDER Start: 07-20-2017 Introduction needle/intracatheter vein UNKNOWN PROVIDER Start: 07-20-2017 MEASURE WEIGHT UNKNOWN PROVIDER Start: 07-20-2017 RECORD HEIGHT UNKNOWN P MICKIEVIDER Start: 07-20-2017 SEND TO CDU UNKNOWN CO OVIDER Start: 07-20-2017 Urine test visual color cmprsn meths UNKNOWN PROVIDER Plan of Treatment Date Care Activity Detail Author Start: 04-21-2031 Urine microalbumin profile DTA P,TDAP,TD (8 - Td or Tdap) [facility] Start: 08-02-2022 Influenza vaccination INFLUENZA (#1) [facility] Start: 12-02-2021 DEPRESSION ASSESSMENT DEPRESSION ASS ESSMENT [facility] Start: 2019 PAP TESTING PAP TESTING [facility] Start: 04-10-2018 CHLAMYDIA SCREENING (18-24) CHLAMYDIA SCREENING (18-24) [facility] Start: 04-10-2018 GC (GONORRHEA) SCREE TIEN (18-24) GC (GONORRHEA) SCREENING (18-24) [facility] Start: 2016 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 (1 of 2 - Risk Bexsero 2-dose series) MENINGOCOCCAL B: Consider based on risk (1 of 2 - Risk Bexsero 2-dose series) [facility] Start: 2004 PNEUMOCOCCAL (1 - PCV) PNEUMOCOCCAL (1 - PCV) [facility] Start: 06-16-1999 COVID-19 VACCINE (#1) COVID-19 VACCI NE (#1) [facility] Immunizations Immunization Date Immunization Notes Care Provider Fa cility 04-21-2021 tetanus toxoid, redu yana diphtheria toxoid, and acellular pertussis vaccine, adsorbed Lauryn Marquez MD Work Phone: [facility] 09-27-2016 influenza, injectabl e, quadrivalent, preservative free Lauryn Marquez MD Work Phone: [facility] 01-04-2015 meningococcal polysaccharide (groups A, C, Y and W-135) diphtheria toxoid conjugate vaccine (MCV4P) Lauryn Marquez MD Work Phone: [facility] 09-14-2014 influenza, seasonal, injectable Lauryn Marquez MD Work Phone: [facility] 10-13-2013 influenza virus vacc ine, whole virus Lauryn Marquez MD Work Phone: [facility] 10-08-2012 influenza virus vacc ine, whole virus Lauryn Marquez MD Work Phone: [facility] 10-19-2011 influenza virus vacc ine, whole virus Lauryn Marquez MD Work Phone: [facility] 07-17-2011 human papilloma viru s vaccine, quadrivalent Lauryn Marquez MD Work Phone: [facility] 03-20-2011 human papilloma viru s vaccine, quadrivalent Lauryn Marquez MD Work Phone: [facility] 01-17-2011 human papilloma viru s vaccine, quadrivalent Lauryn Marquez MD Work Phone: [facility] 09-27-2010 influenza virus vacc ine, whole virus Lauryn Marquez MD Work Phone: [facility] 12-29-2009 Meningococcal, MCV4, unspecified conjugate formulation(groups A, C, Y and W-135) Lauryn Marquez MD Work Phone: [facility] 12-29-2009 tetanus toxoid, redu yana diphtheria toxoid, and acellular pertussis vaccine, adsorbed Lauryn Marquez MD Work Phone: [facility] 02-12-2008 varicella virus vaccine Omar husam Marquez MD Work Phone: [facility] 03-03-2003 diphtheria, tetanus toxoids and acellular pertussis vaccine Lauryn Marquez MD Work Phone: [facility] Work Phone: 03-03-2003 measles, mumps and rubella virus vaccine Lauryn Marquez MD Work Phone: [facility] Work Phone: 03-03-2003 poliovirus vaccine, inactivated Lauryn Marquez MD Work Phone: [facility] Work Phone: 08-13-2001 pneumococcal conjuga te vaccine, 7 valent Lauryn Marquez MD Work Phone: [facility] Work Phone: 03-13-2001 measles, mumps and rubella virus vaccine Lauryn Marquez MD Work Phone: [facility] Work Phone: 08-28-2000 diphtheria, tetanus toxoids and acellular pertussis vaccine Lauryn Marquez MD Work Phone: [facility] Work Phone: 08-28-2000 poliovirus vaccine, inactivated Lauryn Marquez MD Work Phone: [facility] Work Phone: 08-28-2000 varicella virus vaccine Omar Marquez MD Work Phone: [facility] Work Phone: 03-25-2000 haemophilus influenz ae type b vaccine, HbOC conjugate Lauryn Marquez MD Work Phone: [facility] Work Phone: 09-14-1999 diphtheria, tetanus toxoids and acellular pertussis vaccine Lauryn Marquez MD Work Phone: [facility] Work Phone: 09-14-1999 haemophilus influenz ae type b vaccine, HbOC conjugate Lauryn Marquez MD Work Phone: [facility] Work Phone: 09-14-1999 hepatitis B vaccine, pediatric or pediatric/adolescent dosage Lauryn Marquez MD Work Phone: [facility] Work Phone: 05-29-1999 diphtheria, tetanus toxoids and acellular pertussis vaccine Lauryn Marquez MD Work Phone: [facility] Work Phone: 05-29-1999 haemophilus influenz ae type b vaccine, HbOC conjugate Lauryn Marquez MD Work Phone: [facility] Work Phone: 05-29-1999 poliovirus vaccine, inactivated Lauryn Marquez MD Work Phone: [facility] Work Phone: 03-03-1999 diphtheria, tetanus toxoids and acellular pertussis vaccine Lauryn Marquez MD Work Phone: [facility] Work Phone: 03-03-1999 haemophilus influenz ae type b vaccine, HbOC conjugate Lauryn Marquez MD Work Phone: [facility] Work Phone: 03-03-1999 poliovirus vaccine, inactivated Lauryn Marquez MD Work Phone: [facility] Work Phone: 02-01-1999 hepatitis B vaccine, pediatric or pediatric/adolescent dosage Lauryn Marquez MD Work Phone: [facility] Work Phone: 1998 hepatitis B vaccine, pediatric or pediatric/adolescent dosage Lauryn Marquez MD Work Phone: [facility] Work Phone: Payers Date Payer Category Payer Unknown MMO MMO [employer] [id number] 2020-Present [phone] [address] [place] [address] PPO [id number] 2017 Medicaid 2014 Medicaid [id number] 1998 Unknown [id number] 1998 Unknown [id number] Self-pay [id number] Social History Date Type Detail Facility Start: 12-25-2017 [facility] History of tobacco use Cigarette Smoker C [facility] Start: 12-25-2017 Cigarettes smoked cu rrent (pack per day) - Reported 0.3 [facility] Start: 12-25-2017 Tobacco use and exposure Smoke less tobacco non-user [facility] Start: 04-21-2021 Alcohol intake Not Asked [facility] Start: 1998 Sex Assigned At Not on file C [facility] Note 10-24-2022 Telephone Encounter - Delphine Campbell Ma - 10/24/2022 3:49 PM ESTTelephone Encounter - Joycelyn Amato Ma - 10/24/2022 2:45 PM ESTTelephone Encounter - Meaghan Salvador - 10/24/2022 10:03 AM EST Note Date & Type Note Facility 10-24-2022 Miscellaneous Notes Formattin g of this note might be different from the original. Next apt 01/30/22, pt can only do after 5:00 or Saturday apt due to work scheduled Script pending please review/file Pt calling in asking for an update on her refill request. Please review. Thank you. Patient calls for refill(s) of the following medication(s): Requested Prescriptions Pending Prescriptions Disp Refills norgestimate 0.25 mg-ethinyl estradiol 35 mcg (ESTARYLLA) 0.25-35 mg-mcg per tablet Sig: Take 1 tablet by mouth once daily. Preferred Pharmacy: [address] [address] Pt Ph #: [phone] Next appt: Visit date not found Last appt: Visit date not found Last filled: Meaghan Salvador Pt has changed pharmacy, completely out of this medication. documented in this encounter [facility] Progress note 04-21-2021 Note Date & Type Note Facility 04-21-2021 Note HNO ID: [id number] Author: Lauryn Marquez MD Service: ? Author [...] 12 weeks, avoid triggers Lauryn Marquez MD [facility] Summary Purpose Family History No Family History [...] DATE CREATED AUTHOR AUTHOR'S ORGANIZ ATION 05/22/2018 [facility] DATE CREATED AUTHOR AUTHOR'S ORGANIZ ATION 12/18/2018 [facility] DATE CREATED AUTHOR AUTHOR'S ORGANIZ ATION 01/20/2019 [facility] DATE CREATED AUTHOR AUTHOR'S ORGANIZ ATION 12/26/2021 [facility] Source Comments (unrecognize d section and content) In the event this informatio n is protected by the Federal Confidentiality of Alcohol and Drug Abuse Patient Records regulations: The Federal rules restrict any use of the information to criminally investigate or prosecute any alcohol or drug abuse patient.[facility] Reason for Visit (unrecogniz ed section and [...] BE BASED ON THE PRIMARY CLINICAL RECORDS. [facility] [employer] [facility]. provides no warranty or guarantee of the accuracy or completeness of information in this document.
--- NOTE | 2024-01-19 09:06 | PCM.HP.STD ---
[facility] - General General Date of Admission: 01/19/24 Date of Service: 01/19/24 Chief Complaint: shortness of breath. HPI Narrative TUSHAR PEÑA, is a 23 F who presents with shortness of breath. Patient has not been feeling well for the past week. Has been shortness of breath and having a cough and more recently and has been having nausea and vomiting. Symptoms became more acute last night and she presented to the emergency room for evaluation. Since the patient was on contraceptives and was a smoker, patient underwent a CT angiogram of her chest. CT angiogram was negative for pulmonary embolism but did show pneumomediastinum extending to the level of the [place] and extending superiorly or into the base of the neck, worrisome for tracheal or esophageal injury or perforation. The ED physician reached out to [facility] and patient was accepted but did not have any ready beds. Did also reach out to [facility] and they were not accepting patients. Patient was positive for influenza. Patient denies receiving a vaccine for influenza. [facility] Medical History no medical history no medical history Home Medications norgestimate 0.25 mg-ethinyl estradiol 35 mcg tablet (Sprintec (28)) 1 tab PO DAILY CONTROL 01/19/24 [History Last Taken 01/16/24] Allergy/AdvReac Type Severity Reaction Status Date / Time No Known Allergies Allergy Verified 01/18/24 20:53 Surgical History no surgical history Social History (Updated 01/18/24 @ 21:[address] Eitan Dimas MD) household members: significant other Smoking Status: Heavy Smoker (>10/day) substance use type: does not use Vital Signs Vital Signs Vital Signs: 01/18/24 20:50 01/18/24 21:17 01/18/24 21:19 Temperature 36.6 C 36.1 C L Temperature Source Temporal Temporal Pulse Rate 129 H 118 H Respiratory Rate 32 H 24 H Respiratory Effort Short of Breath Labored Accessory Muscle Use Pursed Lip Respiratory Depth Shallow Respiratory Pattern Tachypnea Blood Pressure 92/74 110/57 L Blood Pressure Mean 80 74 Pulse Ox 94 93 Oxygen Delivery Method Room Air Room Air Room Air Oxygen Flow Rate (L/min) 01/18/24 21:15 01/18/24 21:40 01/18/24 21:40 Temperature Temperature Source Pulse Rate 134 H 148 H 139 H Respiratory Rate 24 H 22 H 22 H Respiratory Effort Respiratory Depth Respiratory Pattern Normal Tachypnea Blood Pressure 124/78 H Blood Pressure Mean 93 Pulse Ox 95 Oxygen Delivery Method Room Air Oxygen Flow Rate (L/min) 01/18/24 22:15 01/18/24 22:20 01/18/24 22:34 Temperature 36.6 C Temperature Source Temporal Pulse Rate 137 H Respiratory Rate 26 H Respiratory Effort Respiratory Depth Respiratory Pattern Blood Pressure 96/52 L Blood Pressure Mean 66 Pulse Ox 88 92 95 Oxygen Delivery Method Room Air Nasal Cannula Nasal Cannula Oxygen Flow Rate (L/min) 2 2 01/18/24 23:18 01/18/24 23:55 01/19/24 00:12 Temperature 38.0 C H 38.0 C H Temperature Source Oral Oral Pulse Rate 120 H 118 H Respiratory Rate 22 H 20 H Respiratory Effort Respiratory Depth Respiratory Pattern Blood Pressure 108/53 L 122/61 H Blood Pressure Mean 71 81 Pulse Ox 94 96 96 Oxygen Delivery Method Nasal Cannula Nasal Cannula Room Air Oxygen Flow Rate (L/min) 2 2 01/19/24 00:13 01/19/24 03:09 01/19/24 03:10 Temperature 37.3 C H 36.9 C 36.9 C Temperature Source Oral Oral Oral Pulse Rate 119 H 100 100 Respiratory Rate 20 H 20 H 20 H Respiratory Effort Respiratory Depth Respiratory Pattern Blood Pressure 131/64 H 107/59 L 107/59 L Blood Pressure Mean 86 75 75 Pulse Ox 95 94 94 Oxygen Delivery Method Room Air Nasal Cannula Nasal Cannula Oxygen Flow Rate (L/min) 2 2 01/19/24 04:00 01/19/24 05:00 01/19/24 05:00 Temperature 36.8 C 36.6 C Temperature Source Oral Temporal Pulse Rate 88 106 H Respiratory Rate 16 18 Respiratory Effort Respiratory Depth Respiratory Pattern Blood Pressure 114/54 L 127/85 H 127/85 H Blood Pressure Mean 74 99 99 Pulse Ox 98 99 Oxygen Delivery Method Oxygen Flow Rate (L/min) 01/19/24 06:00 01/19/24 07:11 01/19/24 08:44 Temperature 36.9 C 36.6 C Temperature Source Oral Pulse Rate 97 104 H 91 Respiratory Rate 16 24 H 18 Respiratory Effort Respiratory Depth Respiratory Pattern Tachypnea Blood Pressure 118/75 105/59 L Blood Pressure Mean 89 74 Pulse Ox 90 94 Oxygen Delivery Method Nasal Cannula Oxygen Flow Rate (L/min) 3 Weight Weight: 117.934 kg Body Mass Index (BMI) 37.3 Physical Exam Const alert and no apparent distress Constitutional Narrative: Comfortable. Sitting upright in bed. No respiratory stress. No conversational dyspnea. HEENT normocephalic and head/scalp atraumatic Resp normal respiratory effort, no retractions, no use of accessory muscles and clear to auscultation bilaterally Cardio regular rate, regular rhythm, S1 normal heart sound and S2 normal heart sound GI normal to inspection, nondistended, normoactive bowel sounds, soft to palpation, non-tender and non-distended Extremity normal to inspection and full ROM Neuro Sensorium / Orientation: awake and alert Results Lab / Micro Data 01/18/24 21:09 01/18/24 21:09 Labs: Laboratory Results - last 24 hr 01/18/24 21:09: WBC 8.1, RBC 4.69, Hgb 14.9, Hct 44.6, MCV 95.1, MCH 31.8, MCHC 33.4, RDW Std Deviation 40.4, RDW Coeff of Surendra 11.7, Plt Count 295, MPV 10.2, Immature Gran % (Auto) 0.200, Neut % (Auto) 78.7 H, Lymph % (Auto) 11.5 L, [place] % (Auto) 9.2, Eos % (Auto) 0.2, Baso % (Auto) 0.2, Absolute Neuts (auto) 6.4, Absolute Lymphs (auto) 0.93, Nucleated RBC % 0, Sodium 136, Potassium 3.8, Chloride 106, Carbon Dioxide 23.0, Anion Gap 7, BUN 5 L, Creatinine 0.95, Estim Creat Clear Calc 126.15, Est GFR (MDRD) Af Amer 93, Est GFR (MDRD) Non-Af 76, BUN/Creatinine Ratio 5.3 L, Glucose 108 H, Lactic Acid 2.0, Calcium 9.0, Total Bilirubin 0.40, AST 53 H, ALT 63 H, Alkaline Phosphatase 126 H, Total Protein 7.8, Albumin 3.6, Globulin 4.2, Albumin/Globulin Ratio 0.9 01/19/24 01:29: Lactic Acid 4.5 H* Micro: Microbiology 01/18/24 21:27 Mucosa - Nose SARS-CoV-2, Influenza & RSV (PCR) - Final Influenzae A Rhythm Strip Rhythm Strip: Sinus Tach Rate: 130 Ectopy: None Imaging Radiology Impression Chest X-Ray 01/18/24 21:30 IMPRESSION: Normal x-ray examination of the chest. Electronically Signed: Keaton Carranza MD at 21:43 EST Reading Location ID and State: [id number] / [employer] Tel , Service support , Chest CTA 01/18/24 22:42 IMPRESSION: 1. Negative CTA chest examination, without a demonstrated pulmonary embolism or arterial dissection. 2. Pneumomediastinum extending from the level the [place] and extending superiorly into the base of the neck worrisome for tracheal or esophageal injury/perforation. Clinical correlation is recommended. N.B. : The above Results were Read Back by Keaton Carranza MD to Irwin Ramsey DO, and understanding confirmed on 01/18/2024 23:46:52 (ET). Electronically Signed: Keaton Carranza MD at 23:50 EST Reading Location ID and State: [id number] / [employer] , Service support , ADDENDUM: 01/18/24 2357 IMPRESSION: 1. Negative CTA chest examination, without a demonstrated pulmonary embolism or arterial dissection. 2. Pneumomediastinum extending from the level the [place] and extending superiorly into the base of the neck worrisome for tracheal or esophageal injury/perforation. Clinical correlation is recommended. N.B. : The above Results were Read Back by Keaton Carranza MD to Irwin Ramsey DO, and understanding confirmed on 01/18/2024 23:46:52 (ET). Electronically Signed: Keaton Carranza MD at 23:50 EST Reading Location ID and State: [id number] / [employer] Tel , Service support , Assessment & Plan Assessment/Plan (1) Pneumomediastinum: PLAN: Plan Pneumomediastinum Unable to determine if esophageal or tracheal. Patient, fortunately, is stable at this point in time Patient will need to be transferred to tertiary facility for further evaluation. I do not suspect the patient will require surgery, least at this point in time, however we do not have the appropriate specialist to evaluate her at this point. Awaiting on bed at [facility]. ED was informed that it could be this evening but that is not definitive. Will consult general surgery as well as pulmonary. Is looking for guidance to see if they have any additional recommendations regards to testing and so forth while the patient is at this facility. Patient will be strict n.p.o., though patient did have a full picture of water next for bedside when I saw her in the emergency room. I did remove that from the bedside. IV fluids, IV antiemetics and pain control. Tobacco abuse: Nicotine patch if needed. VTE prophylaxis: SCDs. Charges/Coding Visit Charges Inpatient E&M: 04362 Init Hosp L3
--- OUTSIDE RECORDS SUMMARY | 2024-01-19 09:11 | XMS RPT_ITS | CCD ---
Author Name Unknown Address [address] [place] [address] Organization [facility] Care Team Providers Care Scheduling Manager Name Role Phone PROVIDER, UNKNOWN Unavailable Unavailable [...] Jimmy REARDON, Lauryn Perales Primary Care Provider [phone] Medications Current Medications Medication Drug Class(es) Dates [...] Drug Class(es) Dates Sig (Normalized) Sig (Original) [id number] 200 actuat albuterol 0.09 mg/actuat metered dose [...] PROVIDER Start: 07-20-2017 ADMIT TO CDU [place]KNOWN [place] Start: 07-20-2017 Assay of magnesium UNKN OWN PROVIDER Start: 07-20-2017 Basic metabolic pane l calcium total UNKNOWN PROVIDER Start: 07-20-2017 Blood count complete automated UNKNOWN PROVIDER Start: 07-20-2017 Chest x-ray [place]KNOWN [place] Start: 07-20-2017 Introduction needle/intracatheter vein UNKNOWN PROVIDER Start: 07-20-2017 MEASURE WEIGHT UNKNOWN PROVIDER Start: 07-20-2017 RECORD HEIGHT UNKNOWN P MICKIEVIDER Start: 07-20-2017 SEND TO CDU [place] Start: 07-20-2017 Urine test visual color cmprsn meths UNKNOWN PROVIDER Plan of Treatment Date Care Activity Detail Author Start: 04-21-2031 Urine microalbumin profile DTA P,TDAP,TD (8 - Td or Tdap) [facility] Start: 08-02-2022 Influenza vaccination INFLUENZA (#1) [facility] Start: 12-02-2021 DEPRESSION ASSESSMENT DEPRESSION ASS ESSMENT [facility] Start: 2019 PAP TESTING PAP TESTING [facility] Start: 04-10-2018 CHLAMYDIA SCREENING (18-24) CHLAMYDIA SCREENING (18-24) [facility] Start: 04-10-2018 GC (GONORRHEA) SCREE TIEN (18-24) GC (GONORRHEA) SCREENING (18-24) [facility] Start: 2016 ANNUAL PCP TEAM ICE CREAM SCOOPER LOU DISEASE VISIT ANNUAL PCP TEAM CHRONIC DISEASE VISIT [facility] Start: 2016 HEPATITIS C SCREENING HEPATITIS C SC REENING [facility] Start: 2016 HIV SCREENING HIV SCREENING [facility] Start: 2016 SPIROMETRY SPIROMETRY [facility] Start: 2012 PEDS TO ADULT TRANSI TION ANNUAL ASSESSMENT PEDS TO ADULT TRANSITION ANNUAL ASSESSMENT [facility] Start: 2010 PEDS TO ADULT TRANSI TION INITIAL DISCUSSION PEDS TO ADULT TRANSITION INITIAL DISCUSSION [facility] Start: 2008 MENINGOCOCCAL B: Con project control officer based on risk (1 of 2 - Risk Bexsero 2-dose series) MENINGOCOCCAL B: Consider based on risk (1 of 2 - Risk Bexsero 2-dose series) [facility] Start: 2004 PNEUMOCOCCAL (1 - PCV) PNEUMOCOCCAL (1 - PCV) [facility] Start: 06-16-1999 COVID-19 VACCINE (#1) COVID-19 VACCI NE (#1) [facility] Immunizations Immunization Date Immunization Notes Care Provider Fa cility 04-21-2021 tetanus toxoid, redu yana diphtheria toxoid, and acellular pertussis vaccine, adsorbed Lauryn Marquez MD Work Phone: [facility] 09-27-2016 influenza, injectabl e, quadrivalent, preservative free Lauryn Marquez MD Work Phone: [facility] 01-04-2015 meningococcal polysaccharide (groups A, C, Y and W-135) diphtheria toxoid conjugate vaccine (MCV4P) Lauryn Marquez MD Work Phone: [facility] 09-14-2014 influenza, seasonal, injectable Lauryn Marquez MD Work Phone: [facility] 10-13-2013 influenza virus vacc ine, whole virus Lauryn Marquez MD Work Phone: [facility] 10-08-2012 influenza virus vacc ine, whole virus Lauryn Marquez MD Work Phone: [facility] 10-19-2011 influenza virus vacc ine, whole virus Lauryn Marquez MD Work Phone: [facility] 07-17-2011 human papilloma viru s vaccine, quadrivalent Lauryn Marquez MD Work Phone: [facility] 03-20-2011 human papilloma viru s vaccine, quadrivalent Lauryn Marquez MD Work Phone: [facility] 01-17-2011 human papilloma viru s vaccine, quadrivalent Lauryn Marquez MD Work Phone: [facility] 09-27-2010 influenza virus vacc ine, whole virus Lauryn Marquez MD Work Phone: [facility] 12-29-2009 Meningococcal, MCV4, unspecified conjugate formulation(groups A, C, Y and W-135) Lauryn Marquez MD Work Phone: [facility] 12-29-2009 tetanus toxoid, redu yana diphtheria toxoid, and acellular pertussis vaccine, adsorbed Lauryn Marquez MD Work Phone: [facility] 02-12-2008 varicella virus vaccine Omar husam Marquez MD Work Phone: [facility] 03-03-2003 diphtheria, tetanus toxoids and acellular pertussis vaccine Lauryn Marquez MD Work Phone: [facility] Work Phone: 03-03-2003 measles, mumps and rubella virus vaccine Lauryn Marquez MD Work Phone: [facility] Work Phone: 03-03-2003 poliovirus vaccine, inactivated Lauryn Marquez MD Work Phone: [facility] Work Phone: 08-13-2001 pneumococcal conjuga te vaccine, 7 valent Lauryn Marquez MD Work Phone: [facility] Work Phone: 03-13-2001 measles, mumps and rubella virus vaccine Lauryn Marquez MD Work Phone: [facility] Work Phone: 08-28-2000 diphtheria, tetanus toxoids and acellular pertussis vaccine Lauryn Marquez MD Work Phone: [facility] Work Phone: 08-28-2000 poliovirus vaccine, inactivated Lauryn Marquez MD Work Phone: [facility] Work Phone: 08-28-2000 varicella virus vaccine Omar Marquez MD Work Phone: [facility] Work Phone: 03-25-2000 haemophilus influenz ae type b vaccine, HbOC conjugate Lauryn Marquez MD Work Phone: [facility] Work Phone: 09-14-1999 diphtheria, tetanus toxoids and acellular pertussis vaccine Lauryn Marquez MD Work Phone: [facility] Work Phone: 09-14-1999 haemophilus influenz ae type b vaccine, HbOC conjugate Lauryn Marquez MD Work Phone: [facility] Work Phone: 09-14-1999 hepatitis B vaccine, pediatric or pediatric/adolescent dosage Lauryn Marquez MD Work Phone: [facility] Work Phone: 05-29-1999 diphtheria, tetanus toxoids and acellular pertussis vaccine Lauryn Marquez MD Work Phone: [facility] Work Phone: 05-29-1999 haemophilus influenz ae type b vaccine, HbOC conjugate Lauryn Marquez MD Work Phone: [facility] Work Phone: 05-29-1999 poliovirus vaccine, inactivated Lauryn Marquez MD Work Phone: [facility] Work Phone: 03-03-1999 diphtheria, tetanus toxoids and acellular pertussis vaccine Lauryn Marquez MD Work Phone: [facility] Work Phone: 03-03-1999 haemophilus influenz ae type b vaccine, HbOC conjugate Lauryn Marquez MD Work Phone: [facility] Work Phone: 03-03-1999 poliovirus vaccine, inactivated Lauryn Marquez MD Work Phone: [facility] Work Phone: 02-01-1999 hepatitis B vaccine, pediatric or pediatric/adolescent dosage Lauryn Marquez MD Work Phone: [facility] Work Phone: 1998 hepatitis B vaccine, pediatric or pediatric/adolescent dosage Lauryn Marquez MD Work Phone: [facility] Work Phone: Payers Date Payer Category Payer Unknown MMO MMO [employer] [id number] 2020-Present [phone] [address] [place] [address] PPO [id number] 2017 Medicaid 2014 Medicaid [id number] 1998 Unknown [id number] 1998 Unknown [id number] Self-pay [id number] Social History Date Type Detail Facility [facility]: [facility] History of tobacco use Cigarette Smoker C [facility] Start: 12-25-2017 Cigarettes smoked cu rrent (pack per day) - Reported 0.3 [facility] Start: 12-25-2017 Tobacco use and exposure Smoke less tobacco non-user [facility] Start: 04-21-2021 Alcohol intake Not Asked [facility] Start: 1998 Sex Assigned At Not on file C [facility] Note 10-24-2022 Telephone Encounter - Delphine [...] tablet by mouth once daily. Preferred Pharmacy: [address] [address] Pt Ph #: [phone] Next appt: Visit date not found Last appt: Visit date not found Last filled: Meaghan Salvador Pt has changed pharmacy, completely out of this medication. documented in this encounter [facility] Progress note 04-21-2021 Note Date & Type Note Facility 04-21-2021 Note HNO ID: [id number] Author: Lauryn Marquez MD Service: ? Author [...] 12 weeks, avoid triggers Lauryn Marquez MD [facility] Summary Purpose Family History No Family [...] DATE CREATED AUTHOR AUTHOR'S ORGANIZ ATION 05/22/2018 [facility] DATE CREATED AUTHOR AUTHOR'S ORGANIZ ATION 12/18/2018 [employer] DATE CREATED AUTHOR AUTHOR'S ORGANIZ ATION 01/20/2019 [facility] DATE CREATED AUTHOR AUTHOR'S ORGANIZ ATION 12/26/2021 [facility] Source Comments (unrecognize d section and content) In the event this informatio n is protected by the Federal Confidentiality of Alcohol and Drug Abuse Patient Records regulations: The Federal rules restrict any use of the information to criminally investigate or prosecute any alcohol or drug abuse patient.[facility] Reason for Visit (unrecogniz ed section and [...] BE BASED ON THE PRIMARY CLINICAL RECORDS. [facility] [email or web address] [facility] provides no warranty or guarantee of the accuracy or completeness of information in this document.
[2024-01-19] MEDS: 0.9% Normal Saline (1000mL) 1,000 ML 150 ML IV ×3 (10:33→23:50)
[2024-01-19] MEDS: 0.9% Saline Lock 10 ML Syringe IV (10:33)
--- NOTE | 2024-01-19 14:39 | EX.PCM.CON.S ---
Assessment & Plan Assessment/Plan (1) Pneumomediastinum: (2) Influenza A: PLAN: Plan Discussed with patient and also reviewed patient's CTA with patient and her family. Likely pneumomediastinum came from patient's increased coughing however cannot rule out the esophagus without getting an upper GI which we do not have the availability on the weekend. Recommend strict NPO. Awaiting transfer bed availability. Will continue to follow. Kailey Naqvi M.D. Pager: [phone] [facility] [address] [place] [address], Outpatient Pavilion, [address] [place] [address] Office: [phone] HPI Consult Data Date of Consult: 01/19/24 HPI Narrative Reason for Consultation: Pneumomediastinum awaiting transfer to [facility] [place] [facility] HPI Narrative: TUSHAR PEÑA, is a 23 F who presents presents to the ER due to increased coughing as getting worse. Patient states started about a week ago. Patient had a CT a done which showed a small amount pneumomediastinum. [facility] was contacted for transfer and accepted however they do not currently have a bed available patient was admitted as she was in the ER for 11 hours. Patient was positive for influenza A. [facility] Medical History no medical history Home Medications norgestimate 0.25 mg-ethinyl estradiol 35 mcg tablet (Sprintec (28)) 1 tab PO DAILY CONTROL 01/19/24 [History Last Taken 01/16/24] Allergy/AdvReac Type Severity Reaction Status Date / Time No Known Allergies Allergy Verified 01/18/24 20:53 Surgical History no surgical history Social History (Updated 01/18/24 @ 21:[address] Eitan Dimas MD) household members: significant other Smoking Status: Heavy Smoker (>10/day) substance use type: does not use ROS Constitutional Constitutional: Reports fatigue ENT HEENT: Denies dysphagia Cardiovascular Cardiovascular: Reports chest pain with activity and dyspnea Respiratory/Chest Respiratory/Chest: Reports cough, productive cough, shortness of breath at rest and shortness of breath with exertion Gastrointestinal Gastrointestinal: Denies abdominal pain, nausea or vomiting Genitourinary Genitourinary: Denies dysuria Musculoskeletal Musculoskeletal: Denies joint swelling Integumentary Integumentary: Denies jaundice Neurologic Neurologic: Denies loss of vision Psychiatric Psychiatric: Denies anxiety or depression Hematologic/Lymphatic Hematologic/Lymphatic: Denies easy bleeding Physical Exam Const alert, oriented x3 and no apparent distress HEENT normocephalic Neck supple Resp normal respiratory effort Effort and Inspection: able to speak in complete sentences Cardio Rate: regular rate GI soft to palpation, non-tender and non-distended Lab / Micro Data 01/18/24 21:09 01/18/24 21:09 Labs: Laboratory Results - last 24 hr 01/18/24 21:09: WBC 8.1, RBC 4.69, Hgb 14.9, Hct 44.6, MCV 95.1, MCH 31.8, MCHC 33.4, RDW Std Deviation 40.4, RDW Coeff of Surendra 11.7, Plt Count 295, MPV 10.2, Immature Gran % (Auto) 0.200, Neut % (Auto) 78.7 H, Lymph % (Auto) 11.5 L, Terry % (Auto) 9.2, Eos % (Auto) 0.2, Baso % (Auto) 0.2, Absolute Neuts (auto) 6.4, Absolute Lymphs (auto) 0.93, Nucleated RBC % 0, Sodium 136, Potassium 3.8, Chloride 106, Carbon Dioxide 23.0, Anion Gap 7, BUN 5 L, Creatinine 0.95, Estim Creat Clear Calc 126.15, Est GFR (MDRD) Af Amer 93, Est GFR (MDRD) Non-Af 76, BUN/Creatinine Ratio 5.3 L, Glucose 108 H, Lactic Acid 2.0, Calcium 9.0, Total Bilirubin 0.40, AST 53 H, ALT 63 H, Alkaline Phosphatase 126 H, Total Protein 7.8, Albumin 3.6, Globulin 4.2, Albumin/Globulin Ratio 0.9 01/19/24 01:29: Lactic Acid 4.5 H* Micro: Microbiology 01/18/24 21:27 Mucosa - Nose SARS-CoV-2, Influenza & RSV (PCR) - Final Influenzae A Rhythm Strip Rhythm Strip: Sinus Tach Rate: 130 Ectopy: None Imaging Radiology Impression Chest X-Ray 01/18/24 21:30 IMPRESSION: Normal x-ray examination of the chest. Electronically Signed: Keaton Carranza MD at 21:43 EST Reading Location ID and State: [id number] / [employer] Tel , Service support , Chest CTA 01/18/24 22:42 IMPRESSION: 1. Negative CTA chest examination, without a demonstrated pulmonary embolism or arterial dissection. 2. Pneumomediastinum extending from the level the paris and extending superiorly into the base of the neck worrisome for tracheal or esophageal injury/perforation. Clinical correlation is recommended. N.B. : The above Results were Read Back by Keaton Carranza MD to Irwin Ramsey DO, and understanding confirmed on 01/18/2024 23:46:52 (ET). Electronically Signed: Keaton Carranza MD at 23:50 EST Reading Location ID and State: [employer] Tel , Service support , ADDENDUM: 01/18/24 [id number] IMPRESSION: 1. Negative CTA chest examination, without a demonstrated pulmonary embolism or arterial dissection. 2. Pneumomediastinum extending from the level the paris and extending superiorly into the base of the neck worrisome for tracheal or esophageal injury/perforation. Clinical correlation is recommended. N.B. : The above Results were Read Back by Keaton Carranza MD to Irwin Ramsey DO, and understanding confirmed on 01/18/2024 23:46:52 (ET). Electronically Signed: Keaton Carranza MD at 23:50 EST Reading Location ID and State: Drive / [employer] Tel , Service support , Charges/Coding Visit Charges Inpatient E&M: [id number] Subs Hosp L2
--- NOTE | 2024-01-19 20:35 | PCMCONS.TICU ---
HPI Consult Data Date of Consult: 01/19/24 HPI Narrative HPI Narrative: Chart and data reviewed Attempted to visit patient via telemedicine Unfortunately no staff available despite multiple attempts logging on Young female smoker admitted w/ dyspnea, noted to be PCR (+) for influenza A She is breathing O2 2 LPM CTA (-) for VTED or significant ILD. She does have a small amount of air within the mediastinum. No obvious tracheal defect. I would manage her expectantly. No additional specific evaluation or treatment for this required unless clinical change. We will be available as needed. PFSH Medical History no medical history Home Medications norgestimate 0.25 mg-ethinyl estradiol 35 mcg tablet (Sprintec (28)) 1 tab PO DAILY CONTROL 01/19/24 [History Last Taken 01/16/24] Allergy/AdvReac Type Severity Reaction Status Date / Time No Known Allergies Allergy Verified 01/18/24 20:53 Surgical History no surgical history Social History (Updated 01/18/24 @ 21:[address] Eitan Dimas MD) household members: significant other Smoking Status: Heavy Smoker (>10/day) substance use type: does not use Objective Data Objective Data Vital Signs: Vital Signs Last response Temperature 36.9 C 01/19/24 16:00 Temperature Source Oral 01/19/24 16:00 Pulse Rate 100 01/19/24 19:58 Respiratory Rate 18 01/19/24 19:58 Respiratory Effort Short of Breath, Labored, Accessory Muscle Use, Pursed Lip 01/18/24 21:17 Respiratory Depth Shallow 01/18/24 21:17 Respiratory Pattern Normal 01/19/24 19:58 Blood Pressure 132/63 H 01/19/24 16:00 Blood Pressure Mean 86 01/19/24 16:00 Blood Pressure Source Monitor 01/19/24 16:00 Blood Pressure Position Semi-Fowlers 01/19/24 16:00 Blood Pressure Location Left Arm 01/19/24 16:00 Pulse Ox 94 01/19/24 16:00 Oxygen Delivery Method Nasal Cannula 01/19/24 16:00 Oxygen Flow Rate (L/min) 2 01/19/24 16:00 I&O: I&O Last 24 Hours 01/18/24 01/19/24 01/19/24 23:59 11:59 23:59 Intake Total 1099 2054 Balance 1099 I&O: Total Stay 01/18/24 20:48 thru 01/19/24 16:55 Intake Total 2054 Current Meds Ordered / Administered: Current meds ordered / Administered Generic Name Dose Route Start Last Admin Trade Name Freq PRN Reason Stop Dose Admin Albuterol Sulfate 2.5 mg 01/19/24 09:40 01/19/24 19:58 Albuterol 2.5 Mg/3 Ml Vial.Neb. INHALATION 2.5 mg Q2H PRN PRN Administration SHORTNESS OF BREATH Sodium Chloride 1,000 mls @ 150 mls/hr 01/19/24 09:40 01/19/24 16:55 IV 150 mls/hr .[id number] JENNYFER Administration Sodium Chloride 250 mls @ 15 mls/hr 01/19/24 09:41 IV .[id number] PRN Saline Flush Methylprednisolone 125 mg 01/19/24 21:00 Methylprednisolone 125 Mg/2 Ml Vial IV 01/19/24 21:01 X1 ONE Methylprednisolone 60 mg 01/20/24 10:00 Methylprednisolone 125 Mg/2 Ml Vial IV BID JENNYFER Morphine Sulfate 2 - 4 mg 01/19/24 09:40 Morphine 2 Mg/Ml Syringe IV Q3H PRN PRN Pain Score 6-10 Morphine Sulfate 2 - 4 mg 01/19/24 09:52 Morphine 4 Mg/Ml Syringe IV Q3H PRN PRN Pain Score 6-10 Ondansetron HCl 4 mg 01/19/24 09:40 Ondansetron 4 Mg/2 Ml Vial IV Q8H PRN PRN NAUSEA/VOMITING Prochlorperazine Edisylate 5 mg 01/19/24 09:40 Prochlorperazine 10 Mg/2 Ml Vial IV Q4H PRN PRN Breakthrough nausea/vomiting Sodium Chloride 10 - 40 ml 01/19/24 09:41 01/19/24 10:33 0.9% Saline Lock 10 Ml Syringe IV 10 ml UD PRN Administration SALINE FLUSH Lab / Micro Data 01/18/24 21:09 01/18/24 21:09 Labs: Laboratory Results - last 24 hr 01/18/24 21:09: WBC 8.1, RBC 4.69, Hgb 14.9, Hct 44.6, MCV 95.1, MCH 31.8, MCHC 33.4, RDW Std Deviation 40.4, RDW Coeff of Surendra 11.7, Plt Count 295, MPV 10.2, Immature Gran % (Auto) 0.200, Neut % (Auto) 78.7 H, Lymph % (Auto) 11.5 L, [place] % (Auto) 9.2, Eos % (Auto) 0.2, Baso % (Auto) 0.2, Absolute Neuts (auto) 6.4, Absolute Lymphs (auto) 0.93, Nucleated RBC % 0, Sodium 136, Potassium 3.8, Chloride 106, Carbon Dioxide 23.0, Anion Gap 7, BUN 5 L, Creatinine 0.95, Estim Creat Clear Calc 126.15, Est GFR (MDRD) Af Amer 93, Est GFR (MDRD) Non-Af 76, BUN/Creatinine Ratio 5.3 L, Glucose 108 H, Lactic Acid 2.0, Calcium 9.0, Total Bilirubin 0.40, AST 53 H, ALT 63 H, Alkaline Phosphatase 126 H, Total Protein 7.8, Albumin 3.6, Globulin 4.2, Albumin/Globulin Ratio 0.9 01/19/24 01:29: Lactic Acid 4.5 H* Micro: Microbiology 01/18/24 21:27 Mucosa - Nose SARS-CoV-2, Influenza & RSV (PCR) - Final Influenzae A Rhythm Strip Rhythm Strip: Sinus Tach Rate: 130 Ectopy: None Imaging Radiology Impression Chest X-Ray 01/18/24 21:30 IMPRESSION: Normal x-ray examination of the chest. Electronically Signed: Keaton Carranza MD at 21:43 EST , Chest CTA 01/18/24 22:42 IMPRESSION: 1. Negative CTA chest examination, without a demonstrated pulmonary embolism or arterial dissection. 2. Pneumomediastinum extending from the level the paris and extending superiorly into the base of the neck worrisome for tracheal or esophageal injury/perforation. Clinical correlation is recommended. N.B. : The above Results were Read Back by Keaton Carranza MD to Irwin Ramsey DO, and understanding confirmed on 01/18/2024 23:46:52 (ET). Electronically Signed: Keaton Carranza MD at 23:50 EST , ADDENDUM: 01/18/24 [id number] IMPRESSION: 1. Negative CTA chest examination, without a demonstrated pulmonary embolism or arterial dissection. 2. Pneumomediastinum extending from the level the paris and extending superiorly into the base of the neck worrisome for tracheal or esophageal injury/perforation. Clinical correlation is recommended. N.B. : The above Results were Read Back by Keaton Carranza MD to Irwin Ramsey DO, and understanding confirmed on 01/18/2024 23:46:52 (ET). Electronically Signed: Keaton Carranza MD at 23:50 EST , Assessment and Plan . Assessment and plan: Critical Care Time: The entirety of this encounter was done via Telemedicine
[2024-01-19] MEDS: MethylPREDNISolone 125 MG/2 ML Vial IV (20:44)
[2024-01-20 04:00] VITALS: BP 117/65; PULSE 78; RESP 18; TEMP 36.7; O2SAT 95
[2024-01-20] MEDS: 0.9% Normal Saline (1000mL) 1,000 ML 150 ML IV ×3 (06:21→21:43)
[2024-01-20 06:33] LABS: Absolute Lymphocyte Count 0.67 X10^3/uL (0.83-4.51); Absolute Neutrophil Count 3.5 X10^3/uL (2.0-7.7); Basophil# 0.01 X10^3/uL; Basophil% 0.2 % (0-1); Hematocrit 41.7 % (37-47); Hemoglobin 13.4 g/dL (12.0-15.0); Lymphocyte # 0.67 X10^3/ul (0.83-4.51); Lymphocyte % 14.9 % (19-41); Mean Corp Hgb Conc 32.1 g/dL (32-36); Mean Corpuscular Hgb 31.8 pg (27.0-32.0); Mean Platelet Vol. 10.5 fl (6.2-12.0); Monocyte# 0.27 X10^3/uL; NRBC Flagged by Analyzer 0 % (0-5); Neutrophil # 3.53 X10^3/uL (2.7-7.7); Neutrophil % 78.7 % (47-70); Platelet Count 248 K/mm3 (150-450); RBC Distribution Width SD 43.6 fl (35.1-43.9); Red Blood Count 4.21 M/mm3 (4.2-5.4); White Blood Count 4.5 K/mm3 (4.4-11.0)
[2024-01-20 07:01] LABS: Anion Gap 3 (5-15); BUN 10 mg/dL (7-18); BUN/Creat Ratio 15.8 RATIO (10-20); Calcium,Total 8.5 mg/dL (8.5-10.1); Chloride 116 mmol/L (98-107); Creatinine, Serum 0.63 mg/dL (0.55-1.02); EST Glomerular Filtration Rate 122 mL/min (>60); Est Glom Filt Rate - Afr Amer 147 mL/min (>60); Estimated Creatinine Clearance 174.86 ml/min; Glucose 127 mg/dL (74-106); Potassium 4.2 mmol/L (3.5-5.1); Sodium Level 142 mmol/L (136-145)
--- NOTE | 2024-01-20 08:21 | RAD_ITS ---
EXAMINATION: Gastrografin esophagram/UPPER GI SERIES INDICATION: Female, 23 years . History of a pneumomediastinum. FLUOROSCOPY TIME (if supplied): (0:29) minutes/seconds. 29 fluoroscopic images were obtained. TECHNIQUE: Radiographic and fluoroscopic images of the distal esophagus, and stomach were obtained following the oral ingestion of Gastrografin. COMPARISON: None. FINDINGS: There is no evidence for organomegaly, abnormal calcifications, or abnormal bowel gas pattern. The psoas margins and flank stripes are normal. The visualized osseous structures are normal. The mucosa of the esophagus, stomach and duodenum is normal in appearance without evidence for stricture, ulceration, mass or diverticulum. There is no evidence for hiatal hernia or gastroesophageal reflux. RAD/Upper GI w/BA Swallow IMPRESSION: 1. No evidence of esophageal perforation. Electronically Signed: Rudy Arrington MD at 9:21 EST ,
--- NOTE | 2024-01-20 08:26 | PCM.PN.SRG ---
Subjective Subjective Patient is a 23 y/o F I am following in conjunction with Dr. Naqvi. Patient denies chest pressure or pain. She denies shortness of breath Her only compliant is sore throat. She denies any other concerns at this time. Objective Data Objective Data Vital Signs: Vital Signs Temp Pulse Resp BP Pulse Ox O2 Del Method O2 Flow Rate 98.0 F 78 18 117/65 95 Room Air 2 01/20/24 04:00 01/20/24 04:00 01/20/24 04:00 01/20/24 04:00 01/20/24 04:00 01/20/24 08:00 01/20/24 03:17 Oxygen Flow Rate (L/min) 2 Oxygen Delivery Method Room Air Weight: 220 lb 10.923 oz Body Mass Index (BMI) 31.6 Intake & Output: Intake and Output for Last 24 Hours 01/18/24 01/19/24 01/20/24 23:59 23:59 23:59 Intake Total 3055 / 3055 1000 / 1000 Balance 3055 / 3055 1000 / 1000 Lab / Micro Data 01/20/24 06:15 01/20/24 06:15 Labs: Laboratory Results - last 24 hr 01/20/24 06:15: WBC 4.5, RBC 4.21, Hgb 13.4, Hct 41.7, MCV 99.0, MCH 31.8, MCHC 32.1, RDW Std Deviation 43.6, RDW Coeff of Surendra 12.0, Plt Count 248, MPV 10.5, Immature Gran % (Auto) 0.200, Neut % (Auto) 78.7 H, Lymph % (Auto) 14.9 L, [place] % (Auto) 6.0, Eos % (Auto) 0.0, Baso % (Auto) 0.2, Absolute Neuts (auto) 3.5, Absolute Lymphs (auto) 0.67 L, Nucleated RBC % 0, Sodium 142, Potassium 4.2, Chloride 116 H, Carbon Dioxide 23.0, Anion Gap 3 L, BUN 10, Creatinine 0.63, Estim Creat Clear Calc 174.86, Est GFR (MDRD) Af Amer 147, Est GFR (MDRD) Non-Af 122, BUN/Creatinine Ratio 15.8, Glucose 127 H, Calcium 8.5 Micro: Microbiology 01/18/24 21:27 Mucosa - Nose SARS-CoV-2, Influenza & RSV (PCR) - Final Influenzae A Rhythm Strip Rhythm Strip: Sinus Tach Rate: 130 Ectopy: None Physical Exam GI GI Narrative: Abdomen- soft, nontender Assessment & Plan Assessment/Plan (1) Pneumomediastinum: (2) Influenza A: PLAN: Plan I am following this patient in conjunction with Dr. Naqvi. I have discussed my findings with her. She will independently evaluate this patient. Awaiting bed at [facility] for pneumomediastinum likely from coughing Will order an esophagram with Gastrografin today to r/o esophageal perforation Continue patient NPO at this time We will continue to monitor this patient Charges/Coding Visit Charges Inpatient E&M: 68564 Subs Hosp L1
[2024-01-20 10:03] VITALS: BP 123/59; PULSE 63; RESP 18; TEMP 36.6; O2SAT 94
--- NOTE | 2024-01-20 10:15 | RAD_ITS ---
STUDY: X-RAY CHEST REASON FOR EXAM: Female, 23 years old. Pneumomediastinum TECHNIQUE: PA and lateral views of the chest. COMPARISON: Comparison is made with prior study dated January 18, 2024. FINDINGS: EKG electrodes are seen. Minimal increased marking is seen overlying the lingular segment of the left upper lobe suggestive of atelectasis and/or early infiltrate. There is no demonstrated pleural abnormality. Normal size heart. Normal mediastinum and david. Normal visualized pulmonary arteries. Normal visualized aortic arch and descending thoracic aorta. Normal visualized thoracic spine. Normal visualized ribs, clavicles, and shoulders. There is no demonstrated abnormality of the visualized soft tissue structures of the upper abdomen. RAD/Chest PA and Lateral IMPRESSION: Minimal increased markings overlying the lingular segment of the left upper lobe suggestive of atelectasis and/or early infiltrate. Electronically Signed: Rudy Arrington MD at 12:58 EST ,
[2024-01-20] MEDS: MethylPREDNISolone 125 MG/2 ML Vial 60 MG IV ×2 (10:59→21:46)
[2024-01-20] MEDS: 0.9% Saline Lock 10 ML Syringe IV (10:59)
--- NOTE | 2024-01-20 12:56 | CASEMGMT ---
SW met with patient as she is listed as self pay. SW introduced self and role at [facility]. Patient said she does not have a PCP. Patient is also looking for an OBGYN. Patient stated someone did stop in this am and helped her apply for Medicaid. SW provided patient with a list of local physicians and information on Yarit[facility]. Patient declined any need for further resources. Aixa Sandoval RADIOLOGIST CHIEF OF [employer] [facility]
--- NOTE | 2024-01-20 14:19 | PN_ITS ---
Subjective Subjective Patient seen and examined. She denied any chest pain, shortness of breath or any other symptoms. Review of systems otherwise negative. Objective Data Objective Data Vital Signs: Vital Signs Temp Pulse Resp BP Pulse Ox O2 Del Method O2 Flow Rate 98 F 63 18 123/59 H 94 Room Air 2 01/20/24 10:03 01/20/24 10:03 01/20/24 10:03 01/20/24 10:03 01/20/24 10:03 01/20/24 10:03 01/20/24 03:17 Oxygen Flow Rate (L/min) 2 Oxygen Delivery Method Room Air Weight: 220 lb 10.923 oz Body Mass Index (BMI) 31.6 Intake & Output: Intake and Output for Last 24 Hours 01/18/24 01/19/24 01/20/24 23:59 23:59 23:59 Intake Total 3055 / 3055 1999 Balance 3055 / 3055 1999 Lab / Micro Data 01/20/24 06:15 01/20/24 06:15 Labs: Laboratory Results - last 24 hr 01/20/24 06:15: WBC 4.5, RBC 4.21, Hgb 13.4, Hct 41.7, MCV 99.0, MCH 31.8, MCHC 32.1, RDW Std Deviation 43.6, RDW Coeff of Surendra 12.0, Plt Count 248, MPV 10.5, Immature Gran % (Auto) 0.200, Neut % (Auto) 78.7 H, Lymph % (Auto) 14.9 L, [place] % (Auto) 6.0, Eos % (Auto) 0.0, Baso % (Auto) 0.2, Absolute Neuts (auto) 3.5, Absolute Lymphs (auto) 0.67 L, Nucleated RBC % 0, Sodium 142, Potassium 4.2, Chloride 116 H, Carbon Dioxide 23.0, Anion Gap 3 L, BUN 10, Creatinine 0.63, Estim Creat Clear Calc 174.86, Est GFR (MDRD) Af Amer 147, Est GFR (MDRD) Non-Af 122, BUN/Creatinine Ratio 15.8, Glucose 127 H, Calcium 8.5 Micro: Microbiology 01/18/24 21:27 Mucosa - Nose SARS-CoV-2, Influenza & RSV (PCR) - Final Influenzae A Radiography Diagnostic Testing: Radiology Impression Upper GI/Barium Swallow X-Ray 01/20/24 08:21 IMPRESSION: 1. No evidence of esophageal perforation. Electronically Signed: Rudy Arrington MD at 9:21 EST , Chest X-Ray 01/20/24 10:15 IMPRESSION: Minimal increased markings overlying the lingular segment of the left upper lobe suggestive of atelectasis and/or early infiltrate. Electronically Signed: Rudy Arrington MD at 12:58 EST , Rhythm Strip Rhythm Strip: Sinus Tach Rate: 130 Ectopy: None Physical Exam Const alert, oriented x3 and no apparent distress General Appearance: cooperative and well developed HEENT normocephalic, moist oral mucous membranes and oropharynx normal Eyes PERRL and EOMs intact bilaterally Neck no lymphadenopathy and supple Lymph Lymphatic: no lymphadenopathy noted and no lymphedema noted Resp normal respiratory effort, normal air movement and clear to auscultation bilaterally Cardio regular rate, regular rhythm, S1 normal heart sound, S2 normal heart sound and no murmurs GI normal to inspection, nondistended, normoactive bowel sounds, soft to palpation, non-tender and non-distended Extremity normal capillary refill, no clubbing, cyanosis or edema and no calf tenderness General Extremity: no tenderness to palpation of joints or extremities Skin General Skin Exam: no breakdown Neuro CN's II-XII intact bilaterally, no focal motor deficits, no sensory deficits noted and deep tendon reflexes 2+ bilaterally Motor Exam: strength 5/5 throughout and general weakness Psych thought process normal and cooperative Appearance: appropriate Assessment & Plan Assessment/Plan (1) Pneumomediastinum: PLAN: Plan #Pneumomediastinum * Etiology is unclear. * Patient is stable. Currently on room air. Has been accepted at [facility], pending bed availability. * She had a barium swallow today which did not show any extravasation into the mediastinum from the esophagus. General surgery on board. Critical care also on board. * Currently NPO. * And gently hydrated with IV fluids and IV pain meds. * #Nicotine dependence: Counseled to quit. Nicotine patch as needed. Charges/Coding Visit Charges Inpatient E&M: 18286 Subs Hosp L2
[2024-01-20 15:23] VITALS: BP 133/69; PULSE 77; RESP 18; TEMP 36.7; O2SAT 94
[2024-01-20 16:08] VITALS: O2SAT 95
--- NOTE | 2024-01-20 17:18 | CHAPLAIN ---
Type of Pastoral Visit _x__ Initial Visit ___ Follow-up Visit ___ On-call Visit ___ General Patient Visit ___ Spiritual Assessment ___ Family Conference ___ Bereavement ___ Rapid Response ___ Code Blue ___ Other (describe below) Pastoral Care Referral From _x__ Patient ___ Family ___ Nurse ___ Physician ___ Welder Repair ___ Back Tender ___ Other (describe below) Sacrament/Intervention ___ Active listening ___ Anointing ___ Gnosticist ___ Bereavement ___ Communion ___ Ann exploration ___ ___ Life review _x__ Prayer ___ Reconciliation ___ Sacrament of Sick _x__ Supportive presence ___ Wedding ___ Other (describe below) Pastoral Comments patient was in the bathroom at time of visit but fiance was in the room and gave time for casual conversation and seeking of needs for both; pt is welcoming and states that some improvements have been seen and she is feeling somewhat better; pt denied any needs other than she thought a prayer would be helpful; offer of future support as desired
[2024-01-20 19:00] VITALS: PULSE 86; RESP 18; O2SAT 93
[2024-01-20] MEDS: Albuterol 2.5 MG/3 ML VIAL.NEB. INHALATION (19:01)
[2024-01-20 21:50] VITALS: BP 121/70; PULSE 75; RESP 18; TEMP 36.7; O2SAT 97
[2024-01-21 02:00] VITALS: BP 126/76; PULSE 72; RESP 18; TEMP 36.6; O2SAT 99
[2024-01-21] MEDS: 0.9% Normal Saline (1000mL) 1,000 ML 150 ML IV (05:32)
[2024-01-21 05:52] LABS: Absolute Lymphocyte Count 1.22 X10^3/uL (0.83-4.51); Absolute Neutrophil Count 5.5 X10^3/uL (2.0-7.7); Basophil# 0.01 X10^3/uL; Basophil% 0.1 % (0-1); Hemoglobin 12.4 g/dL (12.0-15.0); Lymphocyte # 1.22 X10^3/ul (0.83-4.51); Lymphocyte % 17.3 % (19-41); Mean Corp Hgb Conc 31.8 g/dL (32-36); Mean Corpuscular Hgb 31.2 pg (27.0-32.0); Mean Corpuscular Volume 98.2 fL (81-99); Mean Platelet Vol. 10.4 fl (6.2-12.0); Monocyte# 0.27 X10^3/uL; Monocyte% 3.8 % (0-10); NRBC Flagged by Analyzer 0 % (0-5); Neutrophil # 5.52 X10^3/uL (2.7-7.7); Neutrophil % 78.4 % (47-70); Platelet Count 258 K/mm3 (150-450); RBC Distribution Width CV 11.8 % (11.6-14.6); RBC Distribution Width SD 42.9 fl (35.1-43.9); Red Blood Count 3.97 M/mm3 (4.2-5.4); White Blood Count 7.1 K/mm3 (4.4-11.0)
[2024-01-21 06:19] LABS: Anion Gap 5 (5-15); BUN 8 mg/dL (7-18); BUN/Creat Ratio 12.8 RATIO (10-20); Calcium,Total 8.4 mg/dL (8.5-10.1); Chloride 112 mmol/L (98-107); Creatinine, Serum 0.63 mg/dL (0.55-1.02); EST Glomerular Filtration Rate 123 mL/min (>60); Est Glom Filt Rate - Afr Amer 149 mL/min (>60); Estimated Creatinine Clearance 174.86 ml/min; Glucose 125 mg/dL (74-106); Potassium 3.9 mmol/L (3.5-5.1); Sodium Level 142 mmol/L (136-145)
--- NOTE | 2024-01-21 07:00 | RAD_ITS ---
INDICATION: pneumomediastinum EXAMINATION/TECHNIQUE: X-RAY - XR Chest 2 Views COMPARISON: CT chest January 18, 2024. Chest radiograph January 20, 2024. FINDINGS: LINES/DEVICES: None. LUNGS: No consolidation, edema or effusion. No pneumothorax. MEDIASTINUM AND CARDIOVASCULAR STRUCTURES: Cardiac silhouette not enlarged. Minimal posterior pneumomediastinum suggested on lateral view, likely decreased from comparison CT given differences in imaging BONES AND SOFT TISSUES: Unremarkable. RAD/Chest PA and Lateral IMPRESSION: Minimal posterior pneumomediastinum, likely decreased from prior CT. Electronically Signed: Bautista Rowan MD at 8:16 EST ,
[2024-01-21 07:22] VITALS: BP 130/74; PULSE 65; RESP 17; TEMP 36.4; O2SAT 93
--- NOTE | 2024-01-21 08:16 | PN.SURG_ITS ---
Subjective Subjective Patient had an upper GI yesterday patient tolerating clears, still no bed available for transfer. Objective Data Objective Data Vital Signs: Vital Signs Temp Pulse Resp BP Pulse Ox O2 Del Method O2 Flow Rate 97.6 F L 65 17 130/74 H 93 Room Air 2 01/21/24 07:22 01/21/24 07:22 01/21/24 07:22 01/21/24 07:22 01/21/24 07:22 01/21/24 08:13 01/21/24 06:49 Oxygen Flow Rate (L/min) 2 Oxygen Delivery Method Room Air Weight: 220 lb 10.923 oz Body Mass Index (BMI) 31.6 Intake & Output: Intake and Output for Last 24 Hours 01/19/24 01/20/24 01/21/24 23:59 23:59 23:59 Intake Total 3055 / 3055 3800 / 3800 1000 / 1000 Balance 3055 / 3055 3800 / 3800 1000 / 1000 Lab / Micro Data 01/21/24 05:37 01/21/24 05:37 Labs: Laboratory Results - last 24 hr 01/21/24 05:37: WBC 7.1, RBC 3.97 L, Hgb 12.4, Hct 39.0, MCV 98.2, MCH 31.2, MCHC 31.8 L, RDW Std Deviation 42.9, RDW Coeff of Surendra 11.8, Plt Count 258, MPV 10.4, Immature Gran % (Auto) 0.400, Neut % (Auto) 78.4 H, Lymph % (Auto) 17.3 L, [place] % (Auto) 3.8, Eos % (Auto) 0.0, Baso % (Auto) 0.1, Absolute Neuts (auto) 5.5, Absolute Lymphs (auto) 1.22, Nucleated RBC % 0, Sodium 142, Potassium 3.9, Chloride 112 H, Carbon Dioxide 25.0, Anion Gap 5, BUN 8, Creatinine 0.63, Estim Creat Clear Calc 174.86, Est GFR (MDRD) Af Amer 149, Est GFR (MDRD) Non-Af 123, BUN/Creatinine Ratio 12.8, Glucose 125 H, Calcium 8.4 L Micro: Microbiology 01/18/24 21:27 Mucosa - Nose SARS-CoV-2, Influenza & RSV (PCR) - Final Influenzae A Radiography Diagnostic Testing: Radiology Impression Upper GI/Barium Swallow X-Ray 01/20/24 08:21 IMPRESSION: 1. No evidence of esophageal perforation. Electronically Signed: Rudy Arrington MD at 9:21 EST , Chest X-Ray 01/20/24 10:15 IMPRESSION: Minimal increased markings overlying the lingular segment of the left upper lobe suggestive of atelectasis and/or early infiltrate. Electronically Signed: Rudy Arrington MD at 12:58 EST , Rhythm Strip Rhythm Strip: Sinus Tach Rate: 130 Ectopy: None Physical Exam Const oriented x3 and no apparent distress Resp normal respiratory effort Resp Narrative: Clear bilaterally slightly decreased at the bases Cardio regular rate GI soft to palpation and non-tender Assessment & Plan Assessment/Plan (1) Pneumomediastinum: (2) Influenza A: PLAN: Plan Patient is still not have a bed for transfer at this beds are tight and patient is stable. Did discuss with cardiothoracic surgeon workup which includes the upper GI which showed no leak from the esophagus thus patient was started on clears which she tolerated. Patient also had a chest x-ray yesterday and today no evidence pneumomediastinum or pneumothorax on yesterday's or today as per my read. Still awaiting official read. If patient tolerates regular diet and official read from chest x-ray does not show any pneumothorax/pneumomediastinum we will be okay to DC home. Will have patient follow-up on Saturday for repeat chest x-ray. Patient can also follow-up in the office in 1 to 2 weeks. Discussed with patient and her mom via phone. They had no further questions at this time. Kailey Naqvi M.D. Pager: [phone] [facility] [address] [place] [address], [facility], [address] [place] [address] Office: [phone] Charges/Coding Visit Charges Inpatient E&M: 37986 Subs Hosp L2
--- NOTE | 2024-01-21 09:38 | NURSING ---
Called [facility] transfer line to cancel transfer. Pt to be discharged per Dr. Russell and Dr. Naqvi.
[2024-01-21] MEDS: Oseltamivir Phosphate 75 MG Capsule PO (09:51)
[2024-01-21] MEDS: MethylPREDNISolone 125 MG/2 ML Vial 60 MG IV (09:51)
--- NOTE | 2024-01-21 11:37 | PCM.DC ---
Discharge Instructions Diet Discharge Diet: Low fat / Low cholesterol Activity Discharge Activity: Return to Normal Activity Weight Bearing Status: Weight bearing as tolerated Dressing / Incision Call your doctor if you observe: Fever of 101 or Higher and Shortness of breath Follow Up Care Test Results: Test results from this visit will be discussed in further detail at your follow-up appointment, if applicable. Discharge Plan Admission Admit Date/Time: 01/19/24 08:41 Primary Reason for Your Visit: pneumomediastinum Attending Provider: Rosario Russell Primary Care Provider: Care Physician,Zamzam Primary Consulting Providers: Kailey Naqvi; Jose Luis Manrique; Bruce Jamil; Shun Vela; Zack Singh; Sendy Alcantara; Tejas Coleman; Mary Crowley; Angeli Ko; Paul June; Rory Cartagena; Lencho Alfred; Austin Baumann; Irwin Rawls Discharge Orders/Prescriptions Prescriptions: New oseltamivir 75 mg Capsule 75 mg PO BID Qty: 9 0RF Continued norgestimate-ethinyl estradiol [Sprintec (28)] 0.25-35 mg-mcg tablet 1 tab PO DAILY Other Ambulatory Orders: Chest PA and Lateral (Routine) Timeframe: 20240124 Facility[facility] - Location: [facility] Ordered By: Meche DYKES Referrals / Follow Up: Kailey Naqvi MD [Med Staff - Active Staff] - 02/05/24 (Follow-up in 2 weeks from discharge date. Please call to schedule an appointment.) Care Physician,No Primary [Primary Care Provider] - Disposition Disposition (needs filled in before D/C Order can be placed): Home, Self Care
--- NOTE | 2024-01-21 11:38 | PCM.DC.SUM ---
Providers Date of Admission: 01/19/24 Date of Discharge: 01/21/24 Primary Care Physician: Zamzam Primary Care Phys Consultations 01/19/24 09:40 Consult: General Surgery Routine Consulting Provider: Kailey Naqvi Reason for Consult: pneumomediastinum EMERGENT Consult: No Notified: Yes Date Notified: 01/19/24 Time Notified: 09:05 Method of Notification: Text Consult: Quality Assurance Tech / Pulmonary Medicine Routine Consulting Provider: Intensivists/Pulmonary Med Reason for Consult: pneumomediastinum EMERGENT Consult: No Notified: Yes Date Notified: 01/19/24 Time Notified: 09:09 Method of Notification: Text Reason For Visit: PNEUMOMEDIATINUM Diagnosis Discharge Diagnosis (1) Pneumomediastinum: Status: Acute Code(s): J98.2 - Interstitial emphysema (2) Influenza A: Status: Acute Code(s): J10.1 - Influenza due to other identified influenza virus with other respiratory manifestations Plan #Pneumomediastinum Etiology is unclear. Patient is stable. Currently on room air. Has been accepted at [facility], pending bed availability. She had a barium swallow today which did not show any extravasation into the mediastinum from the esophagus. General surgery on board. Critical care also on board. Currently NPO. And gently hydrated with IV fluids and IV pain meds. #Nicotine dependence: Counseled to quit. Nicotine patch as needed. Medications at Discharge Home Medications norgestimate 0.25 mg-ethinyl estradiol 35 mcg tablet (Sprintec (28)) 1 tab PO DAILY CONTROL 01/19/24 oseltamivir 75 mg capsule 75 mg PO BID #9 caps 01/21/24 Hospital Course Operations None Procedures - (barium swallow) Summary of Care Provided Minutes Spent on Discharge: 45 Hospital Course: Patient is a 23 y/o female with a PMH as outlined who was admitted via the ED on 01/19/2024 with a complaitn of shortness of breath and a cough with associated nausea and vomiting, which had been going on for a week prior to admission. The symptoms acutely worsened the day before admission so she came in to the ED. She had a CTA of her chest which was negative for any evidence of PE, but showed pneumomediastinum extending to the level of the [place] and extending superiorly iinto the base o fhte neck, worrisome for tracheal or esophageal injury or perforation. Plan was for patient to be transferred to [facility] [place] for evaluation by CT surgery. Patient was accepted there pending bed availability. General surgery was consulted. She had a barium swallow which showed no evidence of esophageal perforation. Patient also tested positive for influenza. Patient remained stable and was started on a diet which she tolerated. She still was not getting a bed at [facility]. General surgery reviewed patient and recommended that patient could be discharged home when she tolerated a regular diet. She did have a follow-up chest x-ray which showed evidence of minimal posterior pneumomediastinum, likely decreased from CT; there was no pneumothorax. Patient was have a follow-up chest x-ray on 01/24/2024. General surgery. She is to follow-up with general surgery within 1 to 2 weeks. She also was discharged with a prescription for p.o. Tamiflu. Patient was seen and examined prior to discharge. She felt well and had no complaints. She had an uneventful night. Review of systems otherwise negative. Labs and vitals reviewed. Home medication reviewed and reconciled. Physical Exam Const alert, oriented x3 and no apparent distress General Appearance: cooperative, comfortable, well kempt and well developed Orientation / Consciousness: awake HEENT normocephalic, head/scalp atraumatic, hearing grossly normal bilaterally, moist oral mucous membranes and oropharynx normal Mouth: oral and palatal mucosa normal Eyes PERRL and EOMs intact bilaterally Neck no lymphadenopathy and supple Lymph Lymphatic: no lymphadenopathy noted and no lymphedema noted Resp normal respiratory effort, normal air movement, no retractions, no use of accessory muscles and clear to auscultation bilaterally Cardio regular rate, regular rhythm, S1 normal heart sound, S2 normal heart sound and no murmurs GI normal to inspection, nondistended, normoactive bowel sounds, soft to palpation, non-tender and non-distended Extremity normal to inspection, full ROM, normal capillary refill, no clubbing, cyanosis or edema and no calf tenderness General Extremity: no tenderness to palpation of joints or extremities Skin no rashes or lesions noted General Skin Exam: no breakdown Neuro oriented x3, CN's II-XII intact bilaterally, moves all extremities, no focal motor deficits, no sensory deficits noted and deep tendon reflexes 2+ bilaterally Sensorium / Orientation: awake and alert Motor Exam: strength 5/5 throughout and general weakness Psych thought process normal and cooperative Appearance: appropriate Weight / BMI Weight Weight: 220 lb 10.923 oz Body Mass Index (BMI) 31.6 ABG / Lab / Microbiology Data 01/21/24 05:37 01/21/24 05:37 Laboratory: Laboratory Results - last 24 hr 01/21/24 05:37: WBC 7.1, RBC 3.97 L, Hgb 12.4, Hct 39.0, MCV 98.2, MCH 31.2, MCHC 31.8 L, RDW Std Deviation 42.9, RDW Coeff of Surendra 11.8, Plt Count 258, MPV 10.4, Immature Gran % (Auto) 0.400, Neut % (Auto) 78.4 H, Lymph % (Auto) 17.3 L, [place] % (Auto) 3.8, Eos % (Auto) 0.0, Baso % (Auto) 0.1, Absolute Neuts (auto) 5.5, Absolute Lymphs (auto) 1.22, Nucleated RBC % 0, Sodium 142, Potassium 3.9, Chloride 112 H, Carbon Dioxide 25.0, Anion Gap 5, BUN 8, Creatinine 0.63, Estim Creat Clear Calc 174.86, Est GFR (MDRD) Af Amer 149, Est GFR (MDRD) Non-Af 123, BUN/Creatinine Ratio 12.8, Glucose 125 H, Calcium 8.4 L Microbiology: Microbiology 01/18/24 21:27 Mucosa - Nose SARS-CoV-2, Influenza & RSV (PCR) - Final Influenzae A Radiography Diagnostic Testing: Radiology Impression Chest X-Ray 01/20/24 10:15 IMPRESSION: Minimal increased markings overlying the lingular segment of the left upper lobe suggestive of atelectasis and/or early infiltrate. Electronically Signed: Rudy Arrington MD at 12:58 EST , Chest X-Ray 01/21/24 07:00 IMPRESSION: Minimal posterior pneumomediastinum, likely decreased from prior CT. Electronically Signed: Bautista Rowan MD at 8:16 EST , D/C Instructions Discharge Diet: Low fat / Low cholesterol Discharge Activity: Return to Normal Activity Weight Bearing Status: Weight bearing as tolerated Call your doctor if you observe: Fever of 101 or Higher and Shortness of breath Meaningful Use Info Meaningful Use Diagnoses (Choose all that apply): None applicable Discharge Plan Admission Admit Date/Time: 01/19/24 08:41 Primary Reason for Your Visit: pneumomediastinum Attending Provider: Rosario Russell Primary Care Provider: Joaquin Physician,No Primary Consulting Providers: Kailey Naqvi; Jose Luis Manrique; Bruce Jamil; Shun Vela; Zack Singh; Sendy Alcantara; Tejas Coleman; Mary Crowley; Angeli Ko; Paul June; Rory Cartagena; Lencho Alfred; Austin Baumann; Irwin Rawls Discharge Orders/Prescriptions Prescriptions: New oseltamivir 75 mg Capsule 75 mg PO BID Qty: 9 0RF Continued norgestimate-ethinyl estradiol [Sprintec (28)] 0.25-35 mg-mcg tablet 1 tab PO DAILY Other Ambulatory Orders: Chest PA and Lateral (Routine) Timeframe: 20240124 Facility: [facility] - Location: [facility] Ordered By: Meche DYKES Referrals / Follow Up: Kailey Naqvi MD [Med Staff - Active Staff] - 02/05/24 (Follow-up in 2 weeks from discharge date. Please call to schedule an appointment.) Care Physician,No Primary [Primary Care Provider] - Disposition Disposition (needs filled in before D/C Order can be placed): Home, Self Care Charges/Coding Visit Charges Inpatient E&M: 40719 Disch Hosp >30min
--- NOTE | 2024-01-21 11:44 | PHA.DC.MC.R ---
Pharmacy [facility] has performed discharge medication reconciliation and counseling for this patient. The patient's discharge medication list was reviewed for discrepancies and discrepancies were resolved. The patient was counseled on the following discharge medications and changes in medications for homegoing were reviewed. The Reason for Use, instructions for use, and potential side effects were reviewed for all new medications. The patient's questions regarding all of their medications were answered. 1. Oseltamivir 75 mg PO BID x 9 doses The patient was able to verbally demonstrate an understanding of their discharge medications. Medications at Discharge Home Medications norgestimate 0.25 mg-ethinyl estradiol 35 mcg tablet (Sprintec (28)) 1 tab PO DAILY CONTROL 01/19/24 oseltamivir 75 mg capsule 75 mg PO BID #9 caps 01/21/24
--- NOTE | 2024-01-21 12:19 | CASEMGMT ---
JEFFERY SANDOVAL Assessment Face to Face with patient for initial transition planning/care coordination assessment. JEFFERY SANDOVAL introduced self and role at [facility], pt voices understanding. Pt is A&Ox4 and is resting comfortably in bed and is calm. Care providers, pharmacy, and demographics verified. Admitting dx: Pneumomediastinum PCP: No PCP. List provided Specialists: None Preferred Pharmacy: [facility] [place] Insurance: None. Pt states that she is in the process of applying for [employer] but needs her pay-stubs from her work prior to advancing this process. Prescription Benefit: Denies LNOK: SO - [place] Living Arrangements: Pt lives with her SO in a side by side apartment with a BM with HR and 6 steps to enter the apartment with HR and no issues. ADLs/IADLs: Ind Transportation: Drives, SO drives. DME: Denies use or needs. HHC/SNF: Denies history or needs. Pt?s goal: Home Plan: 6-click is 24. Pt plan is to [place] home via her mother with no additional needs at this time. Pt states that she will be coming back for an oupt XR as a follow up on Saturday. Margie Miranda RN, CM
== END 2024-01-21 13:27 | disposition home or self-care (01) | DRG 201 ==
LOC: ED 01-19 02:29 → PCU 01-19 08:42
PROVIDERS: Emergency Medicine; Emergency Provider Emergency Medicine; Visit Provider Student in an Organized Health Care Education/Training Program
DX: J98.2 Interstitial emphysema (principal); F17.200 Nicotine dependence, unspecified, uncomplicated; J10.1 Influenza due to other identified influenza virus with other respiratory manifestations; Z79.3 Long term (current) use of hormonal contraceptives
CPT/HCPCS: 36415; 71046; 71275; 74246; 80048; 80053; 83605; 85025; 87631; 94640; 94668; 99252; 99285; J7030; Q9967; A4216; G0463

== ENCOUNTER → 2024-01-24 | Outpatient (CLI) | payer MEDICAID, SELFPAY ==
--- NOTE | 2024-01-24 11:20 | RAD_ITS ---
HISTORY: pneumomediastinum. TECHNIQUE: XR Chest 2 Views. COMPARISON: 01/21/2024. FINDINGS: CARDIOMEDIASTINAL BORDERS: Cardiac silhouette within normal limits in size. Mediastinal contour unremarkable. LUNGS: Radiographically clear. PLEURA: No pleural effusion or pneumothorax seen. OSSEOUS STRUCTURES: Unremarkable. RAD/Chest PA and Lateral IMPRESSION: Decreased appearance of pneumomediastinum. Electronically Signed: Shruthi Alvares MD at 10:20 EST ,
== END | disposition home or self-care (01) ==
PROVIDERS: Referring Provider Physician Assistant; Visit Provider Physician Assistant
DX: J98.2 Interstitial emphysema (principal)
CPT/HCPCS: 71046